=== PATIENT | female | born 1985 | race Caucasian/White ===

== ENCOUNTER → 2017-11-12 | Day surgery (SDC) | payer BC ==
[2017-11-11 15:10] VITALS: BMI 63.0
[~2017-11-12] VITALS: Ht 165.1 cm; Wt 172.7 kg
[~2017-11-12] MED LIST: ATROPINE SULFATE 0.1 MG/ML 5ML SYR IV PRN; BUPR150T7 PO; EpHEDrine SULFATE INJ 50 MG/ML AMP IV PRN; FEXO1TAB46 PO; FLUO10TA3 PO; KETAMINE HCL INJ 50 MG/ML 10 ML VIAL ONE; LEVO100T PO; LIDOCAINE HCL 2% 2 ML VIAL (20MG/ML) ONE; MIDAZOLAM HCL 1 MG/ML 2ML VIAL ONE; POTA1TAB PO; PRLSR20 PO; PROPOFOL IV EMULSION 10 MG/ML 20 ML VIAL ONE; SODIUM CHLORIDE 0.9% 500ML 500 ML IV ONE; TURM1CAP4 PO
[2017-11-12 12:46] VITALS: Ht 165.1 cm; Wt 172.7 kg
[2017-11-12 13:09] VITALS: TEMP 36.7
--- NOTE | 2017-11-12 14:12 | Endo History and Physical ---
History & Physical Date of Service: Nov 12, 2017. Chief Complaint: RECTAL BLEED FAMILY HISTORY COLON FATHER N/V/ABD PAIN Referring Physician: DR. LAIRD History of Present Illness Rectal bleeding and vomiting Past Surgical History Hx Cardiac Surgery: No Hx Internal Defibrillator: No Hx Pacemaker: No Hx Abdominal Surgery: No Hx of Implantable Prosthesis: No Hx Post-Op Nausea and Vomiting: No Hx Cancer Surgery: No Hx Thoracic Surgery: No Hx Orthopedic: No Hx Urinary Tract Surgery: No Family History None Social History Smoking Status: Never Smoker Hx Alcohol Use: No Allergies Coded Allergies: No Known Allergies (Verified , 11/11/17) Current Medications Reported Home Medications Medications Dose Route/Sig Max Daily Dose Days Date Category Potassium Gluconate 595 Mg Tab 1 Dose PO QAM 11/11/17 Reported Turmeric (Turmeric (Curcuma Longa)) 500 Mg Cap 500 Mg PO QAM 11/11/17 Reported Ann (Fexofenadine Hcl) 180 Mg Tab 180 Mg PO QAM 11/11/17 Reported Prilosec (Omeprazole) 20 Mg Capcr 20 Mg PO QAM 11/11/17 Reported Synthroid (Levothyroxine Sodium) 100 Mcg Tab 100 Mcg PO QAM 11/11/17 Reported Fluoxetine Hcl 10 Mg Tab 3 Tab PO QAM 30 11/11/17 Reported Wellbutrin Sr (Bupropion Hcl) 150 Mg Tab 150 Mg PO BID 07/25/15 Reported Vital Signs Weight (Kilograms): 172.73 Height (Feet): 5 Height (Inches): 5 Date Time Temp Pulse Resp B/P (MAP) Pulse Ox O2 Delivery O2 Flow Rate FiO2 11/12/17 13:09 36.7 71 24 124/95 (105) 97 Room Air Physical Exam General Appearance: no apparent distress Respiratory/Chest: Auscultation: breath sounds normal Cardiovascular: Heart Auscultation: RRR Abdomen: Inspection & Palpation: non-distended Assessment and Plan stable for EGD and colonoscopy
--- NOTE | 2017-11-12 15:18 | GI REPORT ---
Patient Name: Stefani Poole Procedure Date: 11/12/2017 2:08 PM Date of : 1985 Admit Type: Outpatient Age: 32 Gender: Female Attending MD: Wenceslao Lynn MD Procedure: Upper GI endoscopy Providers: Wenceslao Lynn MD Referring MD: Nan Weeks NP Indications: Nausea with vomiting Medicines: Monitored Anesthesia Care Complications: No immediate complications. Estimated Blood Loss: Estimated blood loss: none. Procedure: Pre-Anesthesia Assessment: - Prior to the procedure, a History and Physical was performed, and patient medications and allergies were reviewed. The patient is competent. The risks and benefits of the procedure and the sedation options and risks were discussed with the patient. All questions were answered and informed consent was obtained. Patient identification and proposed procedure were verified by the physician and the nurse in the procedure room. Mental Status Examination: alert and oriented. Airway Examination: normal oropharyngeal airway and neck mobility. Respiratory Examination: clear to auscultation. CV Examination: normal. ASA Grade Assessment: III - A patient with severe systemic disease. After reviewing the risks and benefits, the patient was deemed in satisfactory condition to undergo the procedure. The anesthesia plan was to use monitored anesthesia care (MAC). Immediately prior to administration of medications, the patient was re-assessed for adequacy to receive sedatives. The heart rate, respiratory rate, oxygen saturations, blood pressure, adequacy of pulmonary ventilation, and response to care were monitored throughout the procedure. The physical status of the patient was re-assessed after the procedure. After obtaining informed consent, the endoscope was passed under direct vision. Throughout the procedure, the patient's blood pressure, pulse, and oxygen saturations were monitored continuously. The scope was introduced through the mouth, and advanced to the second part of duodenum. The upper GI endoscopy was accomplished without difficulty. The patient tolerated the procedure well. 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 The Z-line was irregular and was found 40 cm from the incisors. Biopsies were taken with a cold forceps for histology. Verification of patient identification for the specimen was done by the physician and nurse using the patient's name and date. The entire examined stomach was normal. Biopsies were taken with a cold forceps for Helicobacter pylori testing. The duodenal bulb and second portion of the duodenum were normal. Biopsies were taken with a cold forceps for histology. Impression: - Ectopic gastric mucosa in the upper third of the esophagus. - Z-line irregular, 40 cm from the incisors. Biopsied. - Normal stomach. Biopsied. - Normal duodenal bulb and second portion of the duodenum. Biopsied. Recommendation: - Await pathology results. - Perform a colonoscopy today. Wenceslao Lynn MD 11/12/2017 3:18:27 PM This report has been signed electronically. Note Initiated On: 11/12/2017 2:08 PM Number of Addenda: 0 I attest to the content of the Intraoperative Record and orders documented therein, exceptions below {[id number]}
--- NOTE | 2017-11-12 15:20 | GI REPORT ---
Patient Name: Stefani Poole Procedure Date: 11/12/2017 2:08 PM Date of : 1985 Admit Type: Outpatient Age: 32 Gender: Female Attending MD: Wenceslao Lynn MD Procedure: Colonoscopy Providers: Wenceslao Lynn MD Referring MD: Nan Weeks NP Indications: Rectal bleeding Medicines: Monitored Anesthesia Care Complications: No immediate complications. Estimated Blood Loss: Estimated blood loss: none. Procedure: Pre-Anesthesia Assessment: - Prior to the procedure, a History and Physical was performed, and patient medications and allergies were reviewed. The patient is competent. The risks and benefits of the procedure and the sedation options and risks were discussed with the patient. All questions were answered and informed consent was obtained. Patient identification and proposed procedure were verified by the physician and the nurse in the procedure room. Mental Status Examination: alert and oriented. Airway Examination: normal oropharyngeal airway and neck mobility. Respiratory Examination: clear to auscultation. CV Examination: normal. ASA Grade Assessment: III - A patient with severe systemic disease. After reviewing the risks and benefits, the patient was deemed in satisfactory condition to undergo the procedure. The anesthesia plan was to use monitored anesthesia care (MAC). Immediately prior to administration of medications, the patient was re-assessed for adequacy to receive sedatives. The heart rate, respiratory rate, oxygen saturations, blood pressure, adequacy of pulmonary ventilation, and response to care were monitored throughout the procedure. The physical status of the patient was re-assessed after the procedure. After I obtained informed consent, the scope was passed under direct vision. Throughout the procedure, the patient's blood pressure, pulse, and oxygen saturations were monitored continuously. The scope was introduced through the anus and advanced to the cecum, identified by appendiceal orifice and ileocecal valve. The colonoscopy was performed without difficulty. The patient tolerated the procedure well. The quality of the bowel preparation was good. The terminal ileum, ileocecal valve, appendiceal orifice, and rectum were photographed. Findings: The perianal and digital rectal examinations were normal. Multiple small and large-mouthed diverticula were found in the sigmoid colon. Non-bleeding internal hemorrhoids were found during retroflexion. The hemorrhoids were small. Impression: - Diverticulosis in the sigmoid colon. - Non-bleeding internal hemorrhoids. - No specimens collected. Recommendation: - Discharge patient to home. - Return to referring physician. Wenceslao Lynn MD 11/12/2017 3:20:16 PM This report has been signed electronically. Note Initiated On: 11/12/2017 2:08 PM Number of Addenda: 0 I attest to the content of the Intraoperative Record and orders documented therein, exceptions below {[id number]}
--- NOTE | 2017-11-12 15:23 | Discharge Instructions ---
Endoscopy Patient Instructions Date / Procedure(s) Performed Nov 12, 2017. Colonoscopy, EGD Allergy Information Coded Allergies: No Known Allergies (Verified , 11/11/17) Discharge Date / Findings Nov 12, 2017. Normal EGD and colonoscopy Hemorrhoids Provider Instructions Activity Restrictions - No exercising or heavy lifting for 24 hours. - Do not drink alcohol the day of the procedure. - Do not drive a car or operate machinery until the day after the procedure. - Do not make any important decisions or sign important papers in 24 hours after the procedure. Following Day: - Return to full activity which may include returning to work/school. Diet Start your diet with liquids and light foods (jello, soup, juice, toast). Then eat your usual diet if not nauseated. Treatment For Common After Affects For mild abdominal pain, bloating, or excessive gas: - Rest - Eat lightly - Lie on right side Follow-Up Information Follow-up with DR. LAIRD as scheduled Anesthesia Information What You Should Know You have had a procedure that required some medicine to reduce anxiety and discomfort. This treatment is called moderate sedation. After receiving the treatment, you may be sleepy, but you will be able to breathe on your own. The effects of the treatment may last for several hours. Follow these instructions along with Activity/Diet recommendations noted above: * Do NOT do anything where dizziness or clumsiness would be dangerous. * Rest quietly at home today, then you can be up and about tomorrow. * Have a responsible person stay with you the rest of today. * You may have had an I.V. today. If so, you may take the dressing off later today. Recommendations Call your doctor if: * Trouble breathing * Continuous vomiting for more than 24 hours * Temperature above 101 degrees * Severe abdominal pain or bloating * Pain not relieved by pain medicine ordered * There is increased drainage or redness from any incision * A large amount of rectal bleeding greater than 2-3 tablespoons. (If you had a polyp/s removed or have hemorrhoids, a small amount of blood - from the rectum is to be expected.) * You have any unanswered questions or concerns. IN THE EVENT OF A SERIOUS EMERGENCY, GO TO THE NEAREST EMERGENCY ROOM Your discharge instructions were prepared by provider Wenceslao yLnn. Patient Instructions Signature Page Stefani Poole Patient (or Guardian) Signature/Date: I have read and understand the instructions given to me by my caregivers. Caregiver/RN/Doctor Signature/Date: The above-named patient and/or guardian has received patient instructions on this date. + Original Patient Signature Page (only) stays with chart. Please make copy for patient.
[2017-11-12 15:53] VITALS: BP 130/90; PULSE 89; O2SAT 100
--- NOTE | 2017-11-12 16:14 | Anesthesiology Progress Note ---
Anesthesia Post Op Note Date & Time Nov 12, 2017 at 16:14 Vital Signs Pain Intensity: 0 Vital Signs Past 12 Hours Date Time Temp Pulse Resp B/P (MAP) Pulse Ox O2 Delivery O2 Flow Rate FiO2 11/12/17 15:53 89 18 130/90 (103) 100 Room Air 11/12/17 15:38 86 18 131/96 (108) 100 Room Air 11/12/17 15:23 86 18 117/80 (92) 100 Room Air 11/12/17 13:09 36.7 71 24 124/95 (105) 97 Room Air Notes Mental Status: alert / awake / arousable, participated in evaluation Pt Amnestic to Procedure: Yes Nausea / Vomiting: adequately controlled Pain: adequately controlled Airway Patency, RR, SpO2: stable & adequate BP & HR: stable & adequate Hydration State: stable & adequate Anesthetic Complications: no major complications apparent
== END | disposition home or self-care (01) ==
LOC: C.GI 12:31
PROVIDERS: ATTEND Student in an Organized Health Care Education/Training Program
DX: K62.5 Hemorrhage of anus and rectum (principal); K57.30 Diverticulosis of large intestine without perforation or abscess without bleeding; K64.8 Other hemorrhoids; G47.33 Obstructive sleep apnea (adult) (pediatric); F32.9 Major depressive disorder, single episode, unspecified; F41.9 Anxiety disorder, unspecified; E03.9 Hypothyroidism, unspecified; E66.01 Morbid (severe) obesity due to excess calories; Z68.44 Body mass index [BMI] 60.0-69.9, adult; Z87.891 Personal history of nicotine dependence

== ENCOUNTER 2020-09-03 14:11 | Observation (INO) ==
[2020-09-03] MEDS ORDERED: PANTOprazole 80 MG in DEXTROSE 5% 100 ML IV ONE (15:50)
[2020-09-03] MEDS ORDERED: SODIUM CHLORIDE 0.9% 1000ML 1,000 ML IV STA (15:50)
[2020-09-03] MEDS ORDERED: PANTOPRAZOLE BOLUS/DRIP 1 EA IV STA (15:50)
[2020-09-03 16:22] LABS: Basophils # (auto) 0.04 K/uL (0-0.2); Basophils % (auto) 0.5 %; Eosinophils # (auto) 0.21 K/uL (0-0.5); Eosinophils % (auto) 2.8 %; Hematocrit (blood only) 41.8 % (37-47); Hemoglobin 13.6 g/dL (12.0-16.0); Immature Granulocytes # (auto) 0.01 K/uL (0.00-0.02); Immature Granulocytes % (auto) 0.1 %; Lymphocytes # (auto) 2.23 K/uL (1.2-3.4); Lymphocytes % (auto) 30.2 %; Mean Corpuscular Hemoglobin 31.6 pg (25-34); Mean Corpuscular Hgb Conc 32.5 g/dL (32-36); Mean Corpuscular Volume 97.2 fL (80-100); Mean Platelet Volume 10.1 fL (7.4-10.4); Monocytes # (auto) 0.66 K/uL (0.11-0.59); Monocytes % (auto) 8.9 %; Neutrophils # (auto) 4.24 K/uL (1.4-6.5); Neutrophils % (auto) 57.5 %; Platelet Count 330 K/uL (130-400); RDW Coefficient of Variation 14.7 % (11.5-14.5); RDW Standard Deviation 52.5 fL (36.4-46.3); White Blood Count 7.39 K/uL (4.8-10.8)
[2020-09-03 16:40] LABS: Partial Thromboplastin Ratio 0.9; Partial Thromboplastin Time 24.9 Seconds (21.0-31.0); Prothrombin Time 10.3 Seconds (9.0-12.0)
[2020-09-03 16:49] LABS: Albumin Level 3.7 gm/dl (3.4-5.0); BUN Creatinine Ratio 18.1 (10-20); Calcium 9.1 mg/dl (8.5-10.1); Creatinine Clr Calc Pharmacy 157.2 ml/min; Est GFR (African American) 108.2 ml/min; Est GFR (Non-African American) 93.4 ml/min; Potassium 3.9 mmol/L (3.5-5.1)
[2020-09-03 16:50] LABS: Albumin Globulin Ratio 0.9 (0.9-2); Bilirubin,Total 0.4 mg/dl (0.2-1); Globulin 3.9 gm/dl (2.5-4.0); Total Protein 7.6 gm/dl (6.4-8.2)
[2020-09-03] MEDS: PANTOprazole 40 MG in DEXTROSE 5% 100 ML IV SCH ×2 (16:53→20:54)
--- NOTE | 2020-09-03 18:19 | CT Scan Report ---
ABDOMEN AND PELVIS CT WITH IV CONTRAST CT DOSE: 4370.71 mGy.cm HISTORY: GI bleed. Gastric sleeve TECHNIQUE: Multiaxial CT images of the abdomen and pelvis were performed following the use of intrave nous contrast. A dose lowering technique was utilized adhering to the principles of ALARA. COMPARISON STUDY: None. FINDINGS: There is artifact secondary to the patient's large body habitus abutting the gantry. The mimi ng bases are clear. No pneumoperitoneum. No pneumatosis. No fractures within the visualized osseous s tructures. There is a 3.9 x 1.6 cm hypodense focus along the inferior aspect of the right hepatic lob e best seen on image 231. This could represent a splenic lesion or subcapsular fluid/old hematoma. Th e gallbladder, spleen, adrenal glands, and pancreas are unremarkable. The kidneys enhance normally. N o hydronephrosis. No retroperitoneal lymphadenopathy. Normal caliber abdominal aorta. Small hiatus he rnia. Postoperative changes consistent with a prior gastric sleeve procedure. There is an elongated h ypodense structure abutting the anterior/inferior aspect of the gastric antrum near the suture line. This is best seen on image 103 and measures 4.6 x 1.7. There is minimal inflammatory changes at this location. No extraluminal gas to suggest an anastomotic leak. No dilated loops of bowel to suggest an obstruction. The bladder, uterus, bilateral adnexa are within normal limits. Colonic diverticulosis. No evidence for acute diverticulitis. No bowel wall thickening. Focal areas of soft tissue density w ithin the subcutaneous fat of the anterior abdominal wall likely represent laparoscopic port sites. IMPRESSION: 1. Status post gastric sleeve procedure. 2. There is an elongated hypodense structure abutting the anterior/inferior aspect of the gastric ant rum near the suture line which measures 4.6 x 1.7. There is minimal inflammatory changes at this loca tion. This is nonspecific but favors postoperative change. No extraluminal gas to suggest an anastomo tic leak. Follow-up abdomen and pelvis CT in one month should be considered to ensure resolution/stab ility of this finding. 3. There is a 3.9 x 1.6 cm hypodense focus along the inferior aspect of the right hepatic lobe best. This could represent a hepatic lesion or subcapsular fluid/old hematoma. This also bears watching on follow-up examinations. ACT 112: Negative or not required by law. Electronically signed by: Lalo Malloy M.D. 09/03/2020 6:18 PM
[2020-09-03 20:03] LABS: Magnesium 2.4 mg/dl (1.8-2.4)
--- NOTE | 2020-09-03 21:26 | History & Physical Report ---
Date of Service September 03, 2020 Assessment & Plan (1) GI bleed: Possible combined UGI B/L GIB Recent sleeve gastrectomy hx GERD Rule out C. difficile Patient currently hemodynamically stable. Left facial asymmetry Unknown duration as per patient/partner Possible CVA given risk factors hypertension, slight elevated Abnormal LFTs secondary to NAFLD as per records hypothyroidism, recent TSH from March 2020 elevated prediabetes, patient meets criteria for DM2 diagnosis given recent hemoglobin A1c of 6.07 July 2020 past tobacco abuse OBS Medical telemetry IV PPI Serial H&H, transfuse PRBC if hemoglobin less than 7 and or for symptomatic anemia Stool C. difficile GI consult Re: GI bleed Neurochecks MRI/MRA brain in a.m. RE left facial asymmetry Additional stroke work-up pending MRI results. Recheck TSH in a.m. ISS BG goal 1 10-1 40 DVT prophylaxis. SCDs Re: GI bleed Full code Patient's partner requesting updates from providers. Ms. Darlin Ch, contact #[phone]. Text document was generated using [employer] voice recognition software. It may contain grammatical or spelling errors. Kindly contact undersigned for clarification of any documentation item in question. History of Present Illness Chief Complaint: Abdominal pain, GI bleed Primary Care Provider: Kameron Desai MD History obtained from patient, family, and records. Medical history significant for hypertension, NAFLD as per records, GERD, history diverticulosis/internal hemorrhoids, hypothyroidism, prediabetes, recent bariatric surgery, past tobacco abuse. Patient confined at [facility] June 2020 for elective sleeve gastrectomy for morbid obesity. Liver wedge biopsy also done during procedure. Unremarkable postop course. 1 week history of achy abdominal pain associated with bloody stools mixed with black, 4 episodes a day as per patient. No fever, no chills. No chest pain, no S OB. Some lightheadedness as per patient. Some nausea. No emesis. Denies OTC NSAID intake. Patient taking vitamins with iron as per partner. No immediate consultations. Patient eventually called PCP's office yesterday following the prodding of her partner. ER evaluation recommended by PCP's office. At the ER, IV PPI started for GI bleed. Medical History as above 2019 normal EGD 2018 diverticulosis, nonbleeding internal hemorrhoids Surgical History : Dental surgery, gastric bypass, partial gastrectomy/pylorus- preserving, tonsillectomy/adenoidectomy, dental surgery Family History : Stroke, breast cancer, colon cancer, DM, heart disease Personal/Social history : Past tobacco abuse, occasional EtOH intake, EMT Allergies Allergy/AdvReac Type Severity Reaction Status Date / Time cephalexin [From Keflex] Allergy Mild vomiting, Verified 09/03/20 16:38 diarrhea Home Medications Medication Instructions Recorded Confirmed Type aripiprazole 10 mg tablet 10 mg PO QAM 05/27/19 09/03/20 History bupropion HCl 150 mg tablet,12 hr 150 mg PO BID 05/27/19 09/03/20 History sustained-release fluoxetine 20 mg capsule 20 mg PO QAM 05/27/19 09/03/20 History fluoxetine 40 mg capsule 40 mg PO QAM 05/27/19 09/03/20 History levothyroxine 137 mcg capsule 137 mcg PO QAM 05/27/19 09/03/20 History omeprazole 40 mg capsule,delayed 40 mg PO QAM 05/27/19 09/03/20 History release topiramate 100 mg tablet 100 mg PO HS 05/27/19 09/03/20 History Metamucil 1 tsp PO QAM PRN 10/20/19 09/03/20 History clonidine HCl [Catapres] 0.2 mg PO HS 03/22/20 09/03/20 History norethindrone acetate 10 mg PO DAILY 03/22/20 09/03/20 History calcium citrate [Citracal] 200 mg PO DAILY 09/03/20 09/03/20 History docusate sodium [Colace] 400 mg PO DAILY 09/03/20 09/03/20 History pediatric multivitamin 1 tab PO DAILY 09/03/20 09/03/20 History [Flintstones Multivitamin] Past Med/Surg History Medical History (Updated 09/04/20 @ 03:00 by Asher De Santiago MD) Anemia Anxiety Bipolar disorder Degenerative disc disease Depression Diverticular disease Hypothyroidism Morbid obesity with BMI of 70 and over, adult Obesity Osteoarthritis Post traumatic stress disorder Sleep apnea cpap, does not use as ordered Spinal stenosis Surgical History History of colonoscopy History of esophagogastroduodenoscopy (EGD) History of myringotomy History of tonsillectomy and adenoids History of wisdom tooth extraction Family History Mother Diabetes Dyslipidemia Heart disease Thyroid disease Father Dyslipidemia Heart disease Colorectal cancer Hypertension Family hx colonic polyps Aunt Osteoarthritis Cancer uterine Grandmother (Paternal) Ovarian cancer Breast cancer Grandmother (Maternal) Cancer cervical Other No family history of adverse response to anesthesia Denies family history of Prostate cancer Social History Smoking Status: Former smoker Cigarettes Per Day: 2 a day; Smoking End Date: 2019; Second Hand Exposure: No; Do You Dip or Chew Tobacco: No; Tobacco Cessation Education Requested by Patient: No Hx Alcohol Use: No Hx Substance Use: No Preferred Language: Kazakh Communication Ability: Effective Yarn Weight [employer] Strength Tester Required: No Beliefs That Will Affect Care: None Current Living Situation: Spouse and Family Current Living Situation Comment: Lives with and stepson current occupational status: employed Other Information That Helps Us Care for You: No Feels Safe at Home: Yes Safety Concerns: Feels Safe At This Time Assistive Devices: None Review of Systems Review of Systems: As per HPI, all 10 systems reviewed, all other ROS negative Physical Exam Physical Exam: GENERAL: Comfortable, slightly anxious, morbidly obese, looks older than stated age, no respiratory distress SKIN: Normal color, warm HEENT: [place] palpebral conjunctivae, no ptosis, dry buccal mucosa, flattened left nasolabial fold NECK : Supple, short neck, no tenderness CHEST : Decreased breath sounds, no tenderness HEART : RRR, no obvious murmurs ABDOMEN: Marked distention, epigastric/hypogastric tenderness EXTREMITIES : Bilateral LE swelling, no LE tenderness, no other conspicuous deformities noted NEUROLOGIC : Coherent, flattened left nasolabial fold, no other gross focality Results & Data Results & Data ([facility]) Vital Signs (Past 12 Hours) Vital Signs Temp Pulse Pulse Resp BP Pulse Ox 09/03/20 19:00 74 18 119/71 99 09/03/20 18:04 76 20 170/92 H 99 09/03/20 16:12 99 09/03/20 15:40 78 20 175/103 H 98 09/03/20 14:13 36.4 C L 97 H 16 97 Laboratory Results Laboratory Results WBC 7.39 K/uL (4.8-10.8) 09/03/20 15:57 RBC 4.30 M/uL (4.2-5.4) 09/03/20 15:57 Hgb 13.6 g/dL (12.0-16.0) 09/03/20 15:57 Hct 41.8 % (37-47) 09/03/20 15:57 MCV 97.2 fL (80-100) 09/03/20 15:57 MCH 31.6 pg (25-34) 09/03/20 15:57 MCHC 32.5 g/dL (32-36) 09/03/20 15:57 RDW Std Deviation 52.5 fL (36.4-46.3) H 09/03/20 15:57 RDW Coeff of Taya 14.7 % (11.5-14.5) H 09/03/20 15:57 Plt Count 330 K/uL (130-400) 09/03/20 15:57 MPV 10.1 fL (7.4-10.4) 09/03/20 15:57 Immature Gran % (Auto) 0.1 % 09/03/20 15:57 Neut % (Auto) 57.5 % 09/03/20 15:57 Lymph % (Auto) 30.2 % 09/03/20 15:57 [place] % (Auto) 8.9 % 09/03/20 15:57 Eos % (Auto) 2.8 % 09/03/20 15:57 Baso % (Auto) 0.5 % 09/03/20 15:57 Neut # (Auto) 4.24 K/uL (1.4-6.5) 09/03/20 15:57 Lymph # (Auto) 2.23 K/uL (1.2-3.4) 09/03/20 15:57 [place] # (Auto) 0.66 K/uL (0.11-0.59) H 09/03/20 15:57 Eos # (Auto) 0.21 K/uL (0-0.5) 09/03/20 15:57 Baso # (Auto) 0.04 K/uL (0-0.2) 09/03/20 15:57 Immature Gran # (Auto) 0.01 K/uL (0.00-0.02) 09/03/20 15:57 PT 10.3 Seconds (9.0-12.0) 09/03/20 15:57 INR 1.0 (0.9-1.1) 09/03/20 15:57 APTT 24.9 Seconds (21.0-31.0) 09/03/20 15:57 PTT Ratio 0.9 09/03/20 15:57 Sodium 139 mmol/L (136-145) 09/03/20 15:57 Potassium 3.9 mmol/L (3.5-5.1) 09/03/20 15:57 Chloride 111 mmol/L (98-107) H 09/03/20 15:57 Carbon Dioxide 21 mmol/L (21-32) 09/03/20 15:57 Anion Gap 7.0 (3-11) 09/03/20 15:57 BUN 15 mg/dl (7-18) 09/03/20 15:57 Creatinine 0.82 mg/dl (0.6-1.2) 09/03/20 15:57 Est Cr Clr Drug Dosing 157.2 ml/min 09/03/20 15:57 Est GFR ( Amer) 108.2 ml/min 09/03/20 15:57 Est GFR (Non-Af Amer) 93.4 ml/min 09/03/20 15:57 BUN/Creatinine Ratio 18.1 (10-20) 09/03/20 15:57 Glucose 97 mg/dl (70-99) 09/03/20 15:57 Calcium 9.1 mg/dl (8.5-10.1) 09/03/20 15:57 Magnesium 2.4 mg/dl (1.8-2.4) 09/03/20 15:57 Total Bilirubin 0.4 mg/dl (0.2-1) 09/03/20 15:57 AST 39 U/L (15-37) H 09/03/20 15:57 ALT 122 U/L (12-78) H 09/03/20 15:57 Alkaline Phosphatase 39 U/L (45-117) L 09/03/20 15:57 Total Protein 7.6 gm/dl (6.4-8.2) 09/03/20 15:57 Albumin 3.7 gm/dl (3.4-5.0) 09/03/20 15:57 Globulin 3.9 gm/dl (2.5-4.0) 09/03/20 15:57 Albumin/Globulin Ratio 0.9 (0.9-2) 09/03/20 15:57 Specimen Hemolysis 09/03/20 15:57 POC Stool Occult Blood Positive (Negative) A 09/03/20 16:10 COVID-19 Eval Order Covid19 at [facility] 09/03/20 19:15 SARS-CoV-2 (PCR) NEGATIVE (Negative) 09/03/20 19:15 Blood Type A Positive 09/03/20 17:04 Antibody Screen NEGATIVE 09/03/20 17:04 Impressions Abdomen/Pelvis CT 09/03/20 15:[address] WITH IV CONTRAST CT DOSE: 4370.71 mGy.cm HISTORY: GI bleed. Gastric sleeve TECHNIQUE: Multiaxial CT images of the abdomen and pelvis were performed following the use of intravenous contrast. A dose lowering technique was utilized adhering to the principles of ALARA. COMPARISON STUDY: None. FINDINGS: There is artifact secondary to the patient's large body habitus abutting the gantry. The lung bases are clear. No pneumoperitoneum. No pneumatosis. No fractures within the visualized osseous structures. There is a 3.9 x 1.6 cm hypodense focus along the inferior aspect of the right hepatic lobe best seen on image 231. This could represent a splenic lesion or subcapsular fluid/old hematoma. The gallbladder, spleen, adrenal glands, and pancreas are unremarkable. The kidneys enhance normally. No hydronephrosis. No retroperitoneal lymphadenopathy. Normal caliber abdominal aorta. Small hiatus he rnia. Postoperative changes consistent with a prior gastric sleeve procedure. There is an elongated hypodense structure abutting the anterior/inferior aspect of the gastric antrum near the suture line. This is best seen on image 103 and measures 4.6 x 1.7. There is minimal inflammatory changes at this location. No extraluminal gas to suggest an anastomotic leak. No dilated loops of bowel to suggest an obstruction. The bladder, uterus, bilateral adnexa are within normal limits. Colonic diverticulosis. No evidence for acute diverticulitis. No bowel wall thickening. Focal areas of soft tissue density within the subcutaneous fat of the anterior abdominal wall likely represent laparoscopic port sites. IMPRESSION: 1. Status post gastric sleeve procedure. 2. There is an elongated hypodense structure abutting the anterior/inferior aspect of the gastric antrum near the suture line which measures 4.6 x 1.7. There is minimal inflammatory changes at this location. This is nonspecific but favors postoperative change. No extraluminal gas to suggest an anastomotic leak. Follow-up abdomen and pelvis CT in one month should be considered to ensure resolution/stability of this finding. 3. There is a 3.9 x 1.6 cm hypodense focus along the inferior aspect of the right hepatic lobe best. This could represent a hepatic lesion or subcapsular fluid/old hematoma. This also bears watching on follow-up examinations. ACT 112: Negative or not required by law. Electronically signed by: Lalo Malloy M.D. 09/03/2020 6:[address] head: No acute intracranial abnormality. EKG as per my interpretation: Rate 75, NSR, short OK, normal axis, T wave abnormality septal leads Code Status & VTE Plan VTE Prophylaxis Plan VTE Prophylaxis will be ordered: Yes
--- NOTE | 2020-09-03 21:27 | CT Scan Report ---
HEAD CT NONCONTRAST CT DOSE: 773.57 mGy.cm HISTORY: L facial asymmetry TECHNIQUE: Multiaxial CT images of the head were performed without the use of intravenous contrast. A utomated exposure control was utilized for this study. A dose lowering technique was utilized adheri ng to the principles of ALARA. Comparison: None. Findings: The paranasal sinuses and mastoid air cells are clear. The calvarium and skull base are int act. The ventricles and sulci are within normal limits. There is no mass, hematoma, midline shift, or acute infarct. Small amount of residual contrast within the brain from the recent abdomen and pelvis CT. Impression: No acute intracranial abnormality. ACT 112: Negative or not required by law. Electronically signed by: Lalo Malloy M.D. 09/03/2020 9:25 PM
[2020-09-03] MEDS ORDERED: TOPIRAMATE 100 MG TAB PO SCH (22:28)
[2020-09-03] MEDS ORDERED: GLUCAGON FOR INJ 1 MG VIAL SQ PRN (22:28)
[2020-09-03] MEDS ORDERED: GLUCOSE 10 TABS/TUBE PO PRN (22:28)
[2020-09-03] MEDS ORDERED: DEXTROSE 50% 50 ML SYRINGE IV PRN (22:28)
[2020-09-03] MEDS ORDERED: PROMETHAZINE HCL 12.5 MG in SODIUM CHLORIDE 0.9% 50 ML IV PRN (22:28)
[2020-09-03] MEDS ORDERED: ACETAMINOPHEN 325 MG TAB PO PRN (22:28)
[2020-09-03] MEDS ORDERED: MoRPHine SULFATE 4 MG/ML 1 ML CARP\\VIAL IV PRN (22:28)
[2020-09-03] MEDS ORDERED: LORazepam 0.5 MG/1 ML VIAL IV PRN (22:28)
[2020-09-03] MEDS ORDERED: traMADol HCL 50 MG TABLET PO PRN (22:28)
[2020-09-03] MEDS ORDERED: GLUCOSE 40% GEL 15 GM TUBE PO PRN (22:28)
[2020-09-03] MEDS ORDERED: CARBOHYDRATES FOR HYPOGLYCEMIA PO PRN (22:28)
[2020-09-03] MEDS ORDERED: PSYLLIUM 58.6% POWDER PACKET PO PRN (22:45)
[2020-09-03 22:50] LABS: Hemoglobin 12.4 g/dL (12.0-16.0)
[2020-09-03] MEDS ORDERED: NSS + 20MEQ KCL 20 MEQ/1,000 ML BAG IV SCH (23:00)
[2020-09-03] MEDS ORDERED: cloNIDine HCL 0.1 MG TAB PO SCH (23:00)
[2020-09-03] MEDS: buPROPion SR 150 MG TABCR PO SCH (23:37)
[2020-09-03] MEDS: INSULIN ASPART 100 UNITS/ML 3 ML PEN SC SCH (23:50)
[2020-09-04] MEDS: PANTOprazole 40 MG in DEXTROSE 5% 100 ML IV SCH ×3 (02:07→13:32)
[2020-09-04 06:06] LABS: Basophils # (auto) 0.03 K/uL (0-0.2); Basophils % (auto) 0.5 %; Eosinophils # (auto) 0.21 K/uL (0-0.5); Eosinophils % (auto) 3.3 %; Hematocrit (blood only) 37.1 % (37-47); Hemoglobin 12.1 g/dL (12.0-16.0); Immature Granulocytes # (auto) 0.01 K/uL (0.00-0.02); Immature Granulocytes % (auto) 0.2 %; Lymphocytes # (auto) 1.94 K/uL (1.2-3.4); Lymphocytes % (auto) 30.5 %; Mean Corpuscular Hemoglobin 31.1 pg (25-34); Mean Corpuscular Hgb Conc 32.6 g/dL (32-36); Mean Corpuscular Volume 95.4 fL (80-100); Mean Platelet Volume 10.1 fL (7.4-10.4); Monocytes # (auto) 0.58 K/uL (0.11-0.59); Monocytes % (auto) 9.1 %; Neutrophils % (auto) 56.4 %; Platelet Count 266 K/uL (130-400); RDW Coefficient of Variation 14.7 % (11.5-14.5); RDW Standard Deviation 51.7 fL (36.4-46.3); Red Blood Count 3.89 M/uL (4.2-5.4); White Blood Count 6.37 K/uL (4.8-10.8)
[2020-09-04] MEDS ORDERED: LEVOTHYROXINE SODIUM 137 MCG TABLET PO SCH (06:30)
[2020-09-04 06:40] LABS: Albumin Level 3.3 gm/dl (3.4-5.0); BUN Creatinine Ratio 15.8 (10-20); Calcium 8.4 mg/dl (8.5-10.1); Creatinine Clr Calc Pharmacy 197.6 ml/min; Est GFR (African American) 132.9 ml/min; Est GFR (Non-African American) 114.7 ml/min; Potassium 3.5 mmol/L (3.5-5.1)
[2020-09-04 06:51] LABS: Bilirubin,Total 0.6 mg/dl (0.2-1); Globulin 3.3 gm/dl (2.5-4.0); Thyroid Stimulating Hormone 1.24 uIu/ml (0.300-4.500); Total Protein 6.6 gm/dl (6.4-8.2)
[2020-09-04] MEDS: INSULIN ASPART 100 UNITS/ML 3 ML PEN SC SCH ×2 (07:08→12:29)
--- NOTE | 2020-09-04 08:37 | Electrocardiogram Report ---
Test Reason : Blood Pressure : / mmHG Vent. Rate : 075 BPM Atrial Rate : 075 BPM P-R Int : 108 ms QRS Dur : 078 ms QT Int : 410 ms P-R-T Axes : 014 036 040 degrees QTc Int : 457 ms Poor data quality, interpretation may be adversely affected Sinus rhythm with short DE Otherwise normal ECG When compared with ECG of 22-MAR-2020 18:50, No significant change was found Confirmed by Jon Crouch ([id number]) on 09/04/2020 8:37:18 AM Referred By: REFERRED SELF Confirmed By:Jon Crouch
[2020-09-04] MEDS: buPROPion SR 150 MG TABCR PO SCH (08:44)
[2020-09-04] MEDS ORDERED: ARIPiprazole 10 MG TAB PO SCH (09:00)
[2020-09-04] MEDS ORDERED: FLUoxetine HCL 20 MG CAP PO SCH ×2 (09:00)
[2020-09-04] MEDS ORDERED: MULTIVITAMIN CHEWABLE TAB PO SCH (09:00)
--- NOTE | 2020-09-04 10:25 | Emergency Department Note ---
History of Present Illness General Chief complaint: GI Assessment Stated complaint: LOWER GI BLOOD Time Seen by Provider: 09/03/20 14:40 Source: patient, family (Significant other) and RN notes reviewed Mode of arrival: ambulatory Limitations: no limitations History of Present Illness Provider complaint: Blood in stool, recent gastric sleeve Maximum Pain Intensity: 3 This patient is a 35-year-old female who presents to the emergency department with complaints of blood in her stool for the last several days. Patient had a gastric sleeve procedure done in mid June. The patient has noticed blood in her stools for the last week. Today she noticed an increase in the amount of blood and her became concerned. The patient denies any nausea, vomiting or abdominal pain. She believes she has been able to eat reasonably well and stay hydrated. She denies anticoagulation or NSAIDs recently. Patient states her surgery was performed at [facility]. Home Medications Medication Instructions Recorded Confirmed Type aripiprazole 10 mg tablet 10 mg PO QAM 05/27/19 09/03/20 History bupropion HCl 150 mg tablet,12 hr 150 mg PO BID 05/27/19 09/03/20 History sustained-release fluoxetine 20 mg capsule 20 mg PO QAM 05/27/19 09/03/20 History fluoxetine 40 mg capsule 40 mg PO QAM 05/27/19 09/03/20 History levothyroxine 137 mcg capsule 137 mcg PO QAM 05/27/19 09/03/20 History topiramate 100 mg tablet 100 mg PO HS 05/27/19 09/03/20 History Metamucil 1 tsp PO QAM PRN 10/20/19 09/03/20 History clonidine HCl [Catapres] 0.2 mg PO HS 03/22/20 09/03/20 History norethindrone acetate 10 mg PO DAILY 03/22/20 09/03/20 History Flintstones Multivitamin 1 tab PO DAILY 09/03/20 09/03/20 History calcium citrate 200 mg PO DAILY 09/03/20 09/03/20 History docusate sodium [Colace] 400 mg PO DAILY 09/03/20 09/03/20 History pantoprazole [Protonix] 40 mg PO BID #60 tab 09/04/20 Rx Allergies Allergy/AdvReac Type Severity Reaction Status Date / Time cephalexin [From Keflex] Allergy Mild vomiting, Verified 09/03/20 16:38 diarrhea Past Med/Surg History Medical History (Updated 09/06/20 @ 01:44 by Corinna Padilla MD) Anemia Anxiety Bipolar disorder Degenerative disc disease Depression Diverticular disease Hypothyroidism Morbid obesity with BMI of 70 and over, adult Obesity Osteoarthritis Post traumatic stress disorder Sleep apnea cpap, does not use as ordered Spinal stenosis Surgical History (Updated 09/06/20 @ 01:44 by Corinna Padilla MD) History of colonoscopy History of esophagogastroduodenoscopy (EGD) History of myringotomy History of tonsillectomy and adenoids History of wisdom tooth extraction Family History Mother Diabetes Dyslipidemia Heart disease Thyroid disease Father Dyslipidemia Heart disease Colorectal cancer Hypertension Family hx colonic polyps Aunt Osteoarthritis Cancer uterine Grandmother (Paternal) Ovarian cancer Breast cancer Grandmother (Maternal) Cancer cervical Other No family history of adverse response to anesthesia Denies family history of Prostate cancer Social History Smoking Status: Former smoker Cigarettes Per Day: 2 a day; Second Hand Exposure: No; Hx Alcohol Use: No Hx Substance Use: No Preferred Language: Moldovan Communication Ability: Effective Science Professor Required: No Beliefs That Will Affect Care: None Current Living Situation: Spouse and Family Current Living Situation Comment: Lives with and stepson current occupational status: employed Feels Safe at Home: Yes Assistive Devices: None Review of Systems See HPI for pertinent positives & negatives. and A total of 10 systems reviewed and were otherwise negative Physical Exam Vital Signs Vital Signs - 24 hr 09/03/20 14:13 09/03/20 15:40 09/03/20 16:12 Temperature 36.4 C L Temperature Source Temporal Artery Scan Pulse Rate - Lying Pulse Rate - Sitting Pulse Rate - Standing Pulse Rate 97 H Pulse Rate [Right Finger] 78 Pulse Rhythm Regular Pulse Rhythm [Right Finger] Regular Pulse Strength Normal Pulse Strength [Right Finger] Normal Respiratory Rate 16 20 Respiratory Effort / Characteristics Non-Labored Non-Labored Spontaneous Respiratory Depth Normal Normal Respiratory Pattern Regular Blood Pressure - Lying Blood Pressure - Sitting Blood Pressure- Standing Blood Pressure [Right Arm] 175/103 H Blood Pressure Mean [Right Arm] 127 Blood Pressure Position Sitting Blood Pressure Position [Right Arm] Sitting Pulse Oximetry 97 98 99 Oxygen Delivery Method Room Air Room Air Room Air Sepsis Recent Fever Within 48 Hours No Sepsis New/Unexplained Change in Mental Status N/A Sepsis Action Taken by Nursing No Action Required 09/03/20 18:04 09/03/20 19:00 09/03/20 20:26 Temperature Temperature Source Pulse Rate - Lying 68 Pulse Rate - Sitting 82 Pulse Rate - Standing 88 Pulse Rate Pulse Rate [Right Finger] 76 74 Pulse Rhythm Pulse Rhythm [Right Finger] Regular Pulse Strength Pulse Strength [Right Finger] Normal Respiratory Rate 20 18 Respiratory Effort / Characteristics Non-Labored Spontaneous Non-Labored Respiratory Depth Normal Normal Respiratory Pattern Regular Blood Pressure - Lying 140/91 Blood Pressure - Sitting 149/91 H Blood Pressure- Standing 158/106 H Blood Pressure [Right Arm] 170/92 H 119/71 Blood Pressure Mean [Right Arm] 118 87 Blood Pressure Position Blood Pressure Position [Right Arm] Sitting Pulse Oximetry 99 99 Oxygen Delivery Method Room Air Room Air Sepsis Recent Fever Within 48 Hours Sepsis New/Unexplained Change in Mental Status Sepsis Action Taken by Nursing Vital signs reviewed. General: Well-appearing, morbidly obese, 35-year-old female, in no significant distress. HEENT: No scleral icterus, PERRLA, neck supple. Atraumatic. Cardiovascular: Regular rate and rhythm, no extra sounds. Pulmonary: Clear to auscultation bilaterally, normal work of breathing. Abdomen: Soft, obese, nontender, nondistended, positive bowel sounds. Musculoskeletal: Atraumatic, no peripheral edema. Neurologic: Patient awake alert and oriented x 3 Rectal: Normal external rectal mucosa with small hemorrhoids appreciated. Dark red blood and heme positive. Skin: Warm, dry, no rash Course Administered Medications Discontinued Medications Aripiprazole (Aripiprazole 10 Mg Tab) 10 mg PO QAM [facility] Stop: 10/04/20 08:59 Last Admin: 09/04/20 08:44 Dose: 10 mg Documented by: [id number] Bupropion HCl (Bupropion Sr 150 Mg Tabcr) 150 mg PO BID [facility] Stop: 10/03/20 22:27 Last Admin: 09/04/20 08:44 Dose: 150 mg Documented by: [id number] Admin: 09/03/20 23:37 Dose: 150 mg Documented by: [id number] Clonidine HCl (Clonidine Hcl 0.1 Mg Tab) 0.1 mg PO HS [facility] Stop: 10/03/20 22:59 Last Admin: 09/03/20 23:37 Dose: 0.1 mg Documented by: [id number] Fluoxetine HCl (Fluoxetine Hcl 20 Mg Cap) 60 mg PO QAM DAT Stop: 10/04/20 08:59 Last Admin: 09/04/20 08:44 Dose: 60 mg Documented by: [id number] Sodium Chloride (Nss 1000ml) 1,000 mls @ 125 mls/hr IV .Q8H STA Stop: 09/03/20 23:49 Last Infusion: 09/03/20 23:46 Dose: 0 mls/hr Documented by: [id number] Admin: 09/03/20 16:09 Dose: 125 mls/hr Documented by: [id number] Pantoprazole Sodium (Protonix Bolus/Drip) 0 mls @ 1 mls/hr IV ONE STA Stop: 09/03/20 15:51 Last Admin: 09/03/20 17:15 Dose: 1 mls/hr Documented by: [id number] Pantoprazole Sodium 40 mg/ (Dextrose) 100 mls @ 20 mls/hr IV Q5H DAT Stop: 10/03/20 16:06 Last Admin: 09/04/20 13:32 Dose: 8 mg/hr, 20 mls/hr Documented by: [id number] Infusion: 09/04/20 13:32 Dose: 8 mg/hr, 20 mls/hr Documented by: [id number] Infusion: 09/04/20 13:30 Dose: 8 mg/hr, 20 mls/hr Documented by: [id number] Infusion: 09/04/20 13:30 Dose: 0 mg/hr, 0 mls/hr Documented by: [id number] Infusion: 09/04/20 11:02 Dose: 8 mg/hr, 20 mls/hr Documented by: [id number] Infusion: 09/04/20 09:45 Dose: 0 mg/hr, 0 mls/hr Documented by: [id number] Admin: 09/04/20 07:14 Dose: 8 mg/hr, 20 mls/hr Documented by: [id number] Infusion: 09/04/20 07:07 Dose: 8 mg/hr, 20 mls/hr Documented by: [id number] Admin: 09/04/20 02:07 Dose: 8 mg/hr, 20 mls/hr Documented by: [id number] Infusion: 09/04/20 01:54 Dose: 8 mg/hr, 20 mls/hr Documented by: [id number] Admin: 09/03/20 20:54 Dose: 8 mg/hr, 20 mls/hr Documented by: [id number] Infusion: 09/03/20 20:54 Dose: 8 mg/hr, 20 mls/hr Documented by: [id number] Admin: 09/03/20 16:53 Dose: 8 mg/hr, 20 mls/hr Documented by: [id number] Pantoprazole Sodium 80 mg/ (Dextrose) 120 mls @ 400 mls/hr IV NOW ONE Stop: 09/03/20 16:07 Last Infusion: 09/03/20 17:13 Dose: 0 mls/hr Documented by: [id number] Admin: 09/03/20 16:53 Dose: 400 mls/hr Documented by: [id number] Potassium Chloride/Sodium Chloride (Normal Saline W/20 Meq Kcl) 20 meq in 1,000 mls @ 50 mls/hr IV .Q20H DAT Stop: 10/03/20 22:59 Last Infusion: 09/04/20 11:02 Dose: 50 mls/hr Documented by: [id number] Infusion: 09/04/20 09:45 Dose: 0 mls/hr Documented by: [id number] Admin: 09/03/20 23:42 Dose: 50 mls/hr Documented by: [id number] Insulin Aspart (Insulin Aspart 100 Units/Ml 3 Ml Pen) 0 units SC Q6 DAT Stop: 10/03/20 22:59 Last Admin: 09/04/20 12:29 Dose: Not Given Documented by: [id number] Admin: 09/04/20 07:08 Dose: Not Given Documented by: [id number] Cosigned by: [id number] Admin: 09/03/20 23:50 Dose: Not Given Documented by: [id number] Cosigned by: [id number] Levothyroxine Sodium (Levothyroxine Sodium 137 Mcg Tablet) 137 mcg PO DAILYBB DAT Stop: 10/04/20 06:29 Last Admin: 09/04/20 07:16 Dose: 137 mcg Documented by: [id number] Multivitamins/Folic Acid/Vitamin C (Multivitamin Chewable Tab) 1 tab PO DAILY DAT Stop: 10/04/20 08:59 Last Admin: 09/04/20 08:44 Dose: 1 tab Documented by: [id number] Topiramate (Topiramate 100 Mg Tab) 100 mg PO HS DAT Stop: 10/03/20 22:27 Last Admin: 09/03/20 23:38 Dose: 100 mg Documented by: [id number] Medical Decision Making Differential Diagnosis Diverticulosis, anastomotic bleed, AVM, coagulopathy, colitis, inflammatory bowel disease, malignancy, Khushboo-Aquino tear, esophagitis, peptic ulcer disease, variceal bleed, gastritis, epistaxis, fissure, hemorrhoids, as well as other pathologies. Medical Records Attestation: I reviewed the patient's medical records. Home Medications Current Medication List: was personally reviewed by me Laboratory Data Attestation: I reviewed the patient's lab results. Result diagrams: 09/04/20 05:29 09/04/20 05:29 Lab Results 09/03/20 09/03/20 09/03/20 Range/Units 15:57 15:57 15:57 WBC 7.39 (4.8-10.8) K/uL RBC 4.30 (4.2-5.4) M/uL Hgb 13.6 (12.0-16.0) g/dL Hct 41.8 (37-47) % MCV 97.2 (80-100) fL MCH 31.6 (25-34) pg MCHC 32.5 (32-36) g/dL RDW Std Deviation 52.5 H (36.4-46.3) fL RDW Coeff of Taya 14.7 H (11.5-14.5) % Plt Count 330 (130-400) K/uL MPV 10.1 (7.4-10.4) fL Immature Gran % (Auto) 0.1 % Neut % (Auto) 57.5 % Lymph % (Auto) 30.2 % [place] % (Auto) 8.9 % Eos % (Auto) 2.8 % Baso % (Auto) 0.5 % Neut # (Auto) 4.24 (1.4-6.5) K/uL Lymph # (Auto) 2.23 (1.2-3.4) K/uL [place] # (Auto) 0.66 H (0.11-0.59) K/uL Eos # (Auto) 0.21 (0-0.5) K/uL Baso # (Auto) 0.04 (0-0.2) K/uL Immature Gran # (Auto) 0.01 (0.00-0.02) K/uL PT 10.3 (9.0-12.0) Seconds INR 1.0 (0.9-1.1) APTT 24.9 (21.0-31.0) Seconds PTT Ratio 0.9 Sodium (136-145) mmol/L Potassium (3.5-5.1) mmol/L Chloride (98-107) mmol/L Carbon Dioxide (21-32) mmol/L Anion Gap (3-11) BUN (7-18) mg/dl Creatinine (0.6-1.2) mg/dl Est Cr Clr Drug Dosing ml/min Est GFR ( Amer) ml/min Est GFR (Non-Af Amer) ml/min BUN/Creatinine Ratio (10-20) Glucose (70-99) mg/dl Calcium (8.5-10.1) mg/dl Magnesium (1.8-2.4) mg/dl Total Bilirubin (0.2-1) mg/dl AST (15-37) U/L ALT (12-78) U/L Alkaline Phosphatase (45-117) U/L Total Protein (6.4-8.2) gm/dl Albumin (3.4-5.0) gm/dl Globulin (2.5-4.0) gm/dl Albumin/Globulin Ratio (0.9-2) Specimen Hemolysis POC Stool Occult Blood (Negative) Stl C. diff Tox B Gene (Neg) COVID-19 Eval Order SARS-CoV-2 (PCR) (Negative) Blood Type Cancelled Antibody Screen Cancelled 09/03/20 09/03/20 09/03/20 Range/Units 15:57 16:06 16:10 WBC (4.8-10.8) K/uL RBC (4.2-5.4) M/uL Hgb (12.0-16.0) g/dL Hct (37-47) % MCV (80-100) fL MCH (25-34) pg MCHC (32-36) g/dL RDW Std Deviation (36.4-46.3) fL RDW Coeff of Taya (11.5-14.5) % Plt Count (130-400) K/uL MPV (7.4-10.4) fL Immature Gran % (Auto) % Neut % (Auto) % Lymph % (Auto) % [place] % (Auto) % Eos % (Auto) % Baso % (Auto) % Neut # (Auto) (1.4-6.5) K/uL Lymph # (Auto) (1.2-3.4) K/uL [place] # (Auto) (0.11-0.59) K/uL Eos # (Auto) (0-0.5) K/uL Baso # (Auto) (0-0.2) K/uL Immature Gran # (Auto) (0.00-0.02) K/uL PT (9.0-12.0) Seconds INR (0.9-1.1) APTT (21.0-31.0) Seconds PTT Ratio Sodium 139 (136-145) mmol/L Potassium 3.9 (3.5-5.1) mmol/L Chloride 111 H (98-107) mmol/L Carbon Dioxide 21 (21-32) mmol/L Anion Gap 7.0 (3-11) BUN 15 (7-18) mg/dl Creatinine 0.82 (0.6-1.2) mg/dl Est Cr Clr Drug Dosing 157.2 ml/min Est GFR ( Amer) 108.2 ml/min Est GFR (Non-Af Amer) 93.4 ml/min BUN/Creatinine Ratio 18.1 (10-20) Glucose 97 (70-99) mg/dl Calcium 9.1 (8.5-10.1) mg/dl Magnesium 2.4 (1.8-2.4) mg/dl Total Bilirubin 0.4 (0.2-1) mg/dl AST 39 H (15-37) U/L ALT 122 H (12-78) U/L Alkaline Phosphatase 39 L (45-117) U/L Total Protein 7.6 (6.4-8.2) gm/dl Albumin 3.7 (3.4-5.0) gm/dl Globulin 3.9 (2.5-4.0) gm/dl Albumin/Globulin Ratio 0.9 (0.9-2) Specimen Hemolysis POC Stool Occult Blood Positive A (Negative) Stl C. diff Tox B Gene Negative Cdiff Gene (Neg) COVID-19 Eval Order SARS-CoV-2 (PCR) (Negative) Blood Type Antibody Screen 09/03/20 09/03/20 09/03/20 Range/Units 17:04 19:15 19:15 WBC (4.8-10.8) K/uL RBC (4.2-5.4) M/uL Hgb (12.0-16.0) g/dL Hct (37-47) % MCV (80-100) fL MCH (25-34) pg MCHC (32-36) g/dL RDW Std Deviation (36.4-46.3) fL RDW Coeff of Taya (11.5-14.5) % Plt Count (130-400) K/uL MPV (7.4-10.4) fL Immature Gran % (Auto) % Neut % (Auto) % Lymph % (Auto) % [place] % (Auto) % Eos % (Auto) % Baso % (Auto) % Neut # (Auto) (1.4-6.5) K/uL Lymph # (Auto) (1.2-3.4) K/uL [place] # (Auto) (0.11-0.59) K/uL Eos # (Auto) (0-0.5) K/uL Baso # (Auto) (0-0.2) K/uL Immature Gran # (Auto) (0.00-0.02) K/uL PT (9.0-12.0) Seconds INR (0.9-1.1) APTT (21.0-31.0) Seconds PTT Ratio Sodium (136-145) mmol/L Potassium (3.5-5.1) mmol/L Chloride (98-107) mmol/L Carbon Dioxide (21-32) mmol/L Anion Gap (3-11) BUN (7-18) mg/dl Creatinine (0.6-1.2) mg/dl Est Cr Clr Drug Dosing ml/min Est GFR ( Amer) ml/min Est GFR (Non-Af Amer) ml/min BUN/Creatinine Ratio (10-20) Glucose (70-99) mg/dl Calcium (8.5-10.1) mg/dl Magnesium (1.8-2.4) mg/dl Total Bilirubin (0.2-1) mg/dl AST (15-37) U/L ALT (12-78) U/L Alkaline Phosphatase (45-117) U/L Total Protein (6.4-8.2) gm/dl Albumin (3.4-5.0) gm/dl Globulin (2.5-4.0) gm/dl Albumin/Globulin Ratio (0.9-2) Specimen Hemolysis POC Stool Occult Blood (Negative) Stl C. diff Tox B Gene (Neg) COVID-19 Eval Order Covid19 at [facility] SARS-CoV-2 (PCR) NEGATIVE (Negative) Blood Type A Positive Antibody Screen NEGATIVE Imaging Data Radiologist's Impression: Abdomen/Pelvis CT 09/03/20 15:[address] WITH IV CONTRAST CT DOSE: 4370.71 mGy.cm HISTORY: GI bleed. Gastric sleeve TECHNIQUE: Multiaxial CT images of the abdomen and pelvis were performed following the use of intravenous contrast. A dose lowering technique was utilized adhering to the principles of ALARA. COMPARISON STUDY: None. FINDINGS: There is artifact secondary to the patient's large body habitus abutting the gantry. The lung bases are clear. No pneumoperitoneum. No pneumatosis. No fractures within the visualized osseous structures. There is a 3.9 x 1.6 cm hypodense focus along the inferior aspect of the right hepatic lobe best seen on image 231. This could represent a splenic lesion or subcapsular fluid/old hematoma. The gallbladder, spleen, adrenal glands, and pancreas are unremarkable. The kidneys enhance normally. No hydronephrosis. No retroperitoneal lymphadenopathy. Normal caliber abdominal aorta. Small hiatus hernia. Postoperative changes consistent with a prior gastric sleeve procedure. There is an elongated hypodense structure abutting the anterior/inferior aspect of the gastric antrum near the suture line. This is best seen on image 103 and measures 4.6 x 1.7. There is minimal inflammatory changes at this location. No extraluminal gas to suggest an anastomotic leak. No dilated loops of bowel to suggest an obstruction. The bladder, uterus, bilateral adnexa are within normal limits. Colonic diverticulosis. No evidence for acute diverticulitis. No bowel w all thickening. Focal areas of soft tissue density within the subcutaneous fat of the anterior abdominal wall likely represent laparoscopic port sites. IMPRESSION: 1. Status post gastric sleeve procedure. 2. There is an elongated hypodense structure abutting the anterior/inferior aspect of the gastric antrum near the suture line which measures 4.6 x 1.7. There is minimal inflammatory changes at this location. This is nonspecific but favors postoperative change. No extraluminal gas to suggest an anastomotic leak. Follow-up abdomen and pelvis CT in one month should be considered to ensure r esolution/stability of this finding. 3. There is a 3.9 x 1.6 cm hypodense focus along the inferior aspect of the right hepatic lobe best. This could represent a hepatic lesion or subcapsular fluid/old hematoma. This also bears watching on follow-up examinations. ACT 112: Negative or not required by law. Electronically signed by: Lalo Malloy M.D. 09/03/2020 6:[address] 09/03/20 20:[address] DOSE: 773.57 mGy.cm HISTORY: L facial asymmetry TECHNIQUE: Multiaxial CT images of the head were performed without the use of intravenous contrast. Automated exposure control was utilized for this study. A dose lowering technique was utilized adhering to the principles of ALARA. Comparison: None. Findings: The paranasal sinuses and mastoid air cells are clear. The calvarium and skull base are intact. The ventricles and sulci are within normal limits. There is no mass, hematoma, midline shift, or acute infarct. Small amount of residual contrast within the brain from the recent abdomen and pelvis CT. Impression: No acute intracranial abnormality. ACT 112: Negative or not required by law. Electronically signed by: Lalo Malloy M.D. 09/03/2020 9:25 PM ECG Data Attestation: I personally reviewed and interpreted this ECG as follows: Indication: + other (GI bleed) Rate (beats per minute): 75 Rhythm: + normal sinus ECG Intervals/blocks: + Normal QT-c ECG Streeter: + Normal ECG ST segments: + Normal ST segments ECG Findings: no PACs and no PVCs Blood Pressure Blood Pressure Findings: Elevated blood pressure Blood Pressure Disposition: further management by hospitalist CHANDRA Hameed This patient was evaluated and appeared to be in no significant distress. IV access was obtained and laboratory work was drawn. An order for cardiac monitoring was placed and the patient is noted to be in a normal sinus rhythm at 81 bpm. IV hydration was initiated. Patient was placed on a Protonix IV bolus with drip. Stool on rectal exam is guaiac positive. Patient did have a small melanotic stool while in the emergency department. Given the patient's recent surgery, CT imaging of the abdomen pelvis was performed and postsurgical changes are noted but no appreciable hematoma or active contrast extravasation. Patient's hemoglobin is 13.6. Patient and her were informed of the findings and plan for admission. Gastroenterology, Dr. Garcia was notified of the patient. Patient will be evaluated for further management. She is aware of the plan and agrees. Impression & Plan Upper gastrointestinal hemorrhage, S/P gastric surgery, Morbid obesity with BMI of 60.0-69.9, adult Discharge Plan Visit Data Chief Complaint: GI Assessment Stated Complaint: LOWER GI BLOOD ED Provider: Corinna Padilla Discharge Problem: Upper gastrointestinal hemorrhage, S/P gastric surgery, Morbid obesity with BMI of 60.0-69.9, adult Patient Disposition: Admitted As Inpatient Discharge Instructions Interventions: ED Discharge Assessment Last Done: 09/03/20 21:52
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
--- NOTE | 2020-09-04 11:26 | Gastrointestinal Consultation ---
Date of Consultation September 04, 2020 Assessment & Plan (1) GI bleed: appears to have resolved on its own, mild to begin with. Likely hemorrhoids or diverticular, less likely ulcer. Recs: advance diet as tolerated now if recurrent bleeding today, then would keep NPO post midnight for EGD tomorrow if no further bleeding then can discharge home today on protonix 40 mg BID and follow up with [facility] as an outpatient continue protonix Thank you for allowing me to participate in the care of this patient History of Present Illness Attending Physician: Itzel George MD 35 yo female here with abd pains and hematochezia. She notes this has been going on for last week or so. Underwent slleve gastrectomy in June 2020 for obesity, also with HTN, diverticulosis. Hgb has been normal this admission, BUN normal, VSS. Currently without any pains or bleeding. On protonix drip. CT A/P with contrast unremarkable for any bleeding sources. EGD 09/[address] Howard was normal. labs reviewed, VSS. Allergies Allergy/AdvReac Type Severity Reaction Status Date / Time cephalexin [From Keflex] Allergy Mild vomiting, Verified 09/03/20 16:38 diarrhea Home Medications Medication Instructions Recorded Confirmed Type aripiprazole 10 mg tablet 10 mg PO QAM 05/27/19 09/03/20 History bupropion HCl 150 mg tablet,12 hr 150 mg PO BID 05/27/19 09/03/20 History sustained-release fluoxetine 20 mg capsule 20 mg PO QAM 05/27/19 09/03/20 History fluoxetine 40 mg capsule 40 mg PO QAM 05/27/19 09/03/20 History levothyroxine 137 mcg capsule 137 mcg PO QAM 05/27/19 09/03/20 History omeprazole 40 mg capsule,delayed 40 mg PO QAM 05/27/19 09/03/20 History release topiramate 100 mg tablet 100 mg PO HS 05/27/19 09/03/20 History Metamucil 1 tsp PO QAM PRN 10/20/19 09/03/20 History clonidine HCl [Catapres] 0.2 mg PO HS 03/22/20 09/03/20 History norethindrone acetate 10 mg PO DAILY 03/22/20 09/03/20 History calcium citrate [Citracal] 200 mg PO DAILY 09/03/20 09/03/20 History docusate sodium [Colace] 400 mg PO DAILY 09/03/20 09/03/20 History pediatric multivitamin 1 tab PO DAILY 09/03/20 09/03/20 History [Flintstones Multivitamin] Patient History Medical History Anemia Anxiety Bipolar disorder Degenerative disc disease Depression Diverticular disease Hypothyroidism Morbid obesity with BMI of 70 and over, adult Obesity Osteoarthritis Post traumatic stress disorder Sleep apnea cpap, does not use as ordered Spinal stenosis Surgical History History of colonoscopy History of esophagogastroduodenoscopy (EGD) History of myringotomy History of tonsillectomy and adenoids History of wisdom tooth extraction Family History Mother Diabetes Dyslipidemia Heart disease Thyroid disease Father Dyslipidemia Heart disease Colorectal cancer Hypertension Family hx colonic polyps Aunt Osteoarthritis Cancer uterine Grandmother (Paternal) Ovarian cancer Breast cancer Grandmother (Maternal) Cancer cervical Other No family history of adverse response to anesthesia Denies family history of Prostate cancer Social History Smoking Status: Former smoker Cigarettes Per Day: 2 a day; Smoking End Date: 2019; Second Hand Exposure: No; Do You Dip or Chew Tobacco: No; Tobacco Cessation Education Requested by Patient: No Hx Alcohol Use: No Hx Substance Use: No Preferred Language: French Communication Ability: Effective Assembler Type Bar And Segment Required: No Beliefs That Will Affect Care: None Current Living Situation: Spouse and Family Current Living Situation Comment: Lives with and stepson current occupational status: employed Other Information That Helps Us Care for You: No Feels Safe at Home: Yes Safety Concerns: Feels Safe At This Time Assistive Devices: None Review of Systems Constitutional: no fever, no chills and no weight loss Eyes: as per Subjective / HPI Ear, Nose, Mouth, Throat: as per Subjective / HPI Respiratory: no dyspnea and no dyspnea on exertion Cardiovascular: no chest pain and no palpitations Gastrointestinal: as per Subjective / HPI Musculoskeletal: no joint pain and no swelling Integumentary: no rash and no lesions Neurologic: no numbness and no paresthesia Psychiatric: no depression and no anxiety Endocrine: no fatigue Hematologic / Lymphatic: no easy bleeding and no easy bruising Physical Exam Constitutional: WD/WN, vitals as above Eyes: EOM intact bilaterally Neck: normal visual inspection Respiratory: normal respiratory effort, lungs clear to auscultation Cardiovascular: RRR, no murmur, no edema Gastrointestinal (Abdomen): Inspection/Auscultation: abdomen normal to inspection; abdomen not distended Percussion/Palpation: abdomen soft; abdomen nontender and no hepatosplenomegaly Musculoskeletal: Extremities: no cyanosis Gait: normal gait Skin: no rashes, warm and dry Neurologic: moves all extremities Psychiatric: A+Ox3, euthymic affect Results & Data ([facility]) Vital Signs (Past 12 Hours) Vital Signs Temp Pulse Pulse Resp BP Pulse Ox 09/04/20 07:27 37.1 C 81 16 119/67 97 09/04/20 06:20 71 09/04/20 04:13 84 09/04/20 03:31 37.1 C 90 18 111/72 97 09/04/20 00:04 36.7 C 75 17 144/79 H 98 PG Care Time/CCT Total # of Minutes Spent Total Time Spent with Patient: Total time spent is greater than 50% in coordination of care (as documented) at patient's floor/unit and/or counseling patient: Coding Level of Care Code 49223 Office/OBS Consult Lvl 4 Diagnoses GI bleed K92.2
--- NOTE | 2020-09-04 15:12 | Magnetic Resonance Report ---
MRI OF THE BRAIN WITHOUT CONTRAST CLINICAL HISTORY: facial asymmetry COMPARISON STUDY: None. FINDINGS: Sagittal T1, axial diffusion, proton density and T2 weighted axial, coronal FLAIR, and axial T1-weigh niurka images were acquired. No intra or extra-axial mass lesions are visualized Axial diffusion-weighted images reveal no evidence of acute or subacute infarction. There is no evidence of ventricular dilatation. Proton density T2-weighted and FLAIR images reveal single small area of slightly increased T2 FLAIR s ignal within left occipital lobe which shows no evidence of restricted diffusion and not visualized o n other modalities. There are no abnormal flow voids. Evaluation is slightly limited due to motion artifact. IMPRESSION: No acute intracranial hemorrhage, no midline shift or space occupying lesions. No evidence of restricted diffusion to suggest acute ischemia/infarct. Questionable small focal area of slightly increase in T2 FLAIR signal within left occipital lobe, pro bably nonspecific and might represent small region of gliosis versus other etiology. ACT 112: Negative or not required by law. The above report was generated using voice recognition software. It may contain grammatical, syntax o r spelling errors. Electronically signed by: Allyssa Tarango DO 09/04/2020 3:11 PM
--- NOTE | 2020-09-04 15:20 | Magnetic Resonance Report ---
MR ANGIOGRAPHY OF THE [place] NO CONTRAST CLINICAL HISTORY: facial asymmetry COMPARISON STUDY: None. A 3-D [id number] MR angiographic sequence of the [place] was performed. Both the source and projection images were reviewed. There is no evidence of major intracranial branch occlusion. There is no evidence of intracranial sherry nosis. There are no lesions suspicious for aneurysm. Hypoplastic bilateral posterior communicating arteries are seen likely representing developmental maite iant. IMPRESSION : No evidence of occlusion or significant stenosis as detailed above. ACT 112: Negative or not required by law. The above report was generated using voice recognition software. It may contain grammatical, syntax o r spelling errors. Electronically signed by: Allyssa Tarango DO 09/04/2020 3:19 PM
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
== END 2020-09-04 16:15 | disposition home or self-care (01) ==
LOC: 2W 14:11 → ED 14:11 → 2W 21:52

== ENCOUNTER 2024-06-30 05:57 | Observation (INO) ==
--- NOTE | 2024-06-02 11:14 | PAT Medication Instructions ---
Medication Instructions Date of Service June 02, 2024 Home Medications levothyroxine 137 mcg capsule (Tirosint) 137 mcg PO QAM calcium citrate 200 mg PO QAM cyanocobalamin (vitamin B-12) 1,000 mcg/mL injection kit 1,000 mcg subcut Q3M omeprazole 40 mg capsule,delayed release 40 mg PO QAM ferrous sulfate 325 mg (65 mg iron) tablet (iron) 325 mg PO QAM cholecalciferol (vitamin D3) 50 mcg (2,000 unit) capsule 50 mcg PO DAILY aripiprazole 400 mg suspension, extended rel.intramuscular syringe (AbiliInaura Maintena) 400 mg IM MONTHLY cetirizine 10 mg tablet (Zyrtec) 10 mg PO DAILY PRN Congestion iuljyoif-uah-rsvr-FA-Ca carb-vit K 18 mg iron-400 mcg-500 mg tablet (Women's One Daily) 1 tab PO DAILY propranolol 10 mg tablet 10 mg PO BID PRN Anxiety Medical Marijuana 1 dose PO DAILY PRN Sleep clomipramine 25 mg capsule 100 mg PO HS lamotrigine 100 mg tablet 100 mg PO HS pregabalin 50 mg capsule (Lyrica) 50 mg PO HS Continue as directed aripiprazole 400 mg suspension, extended rel.intramuscular syringe (AbiliInaura Maintena) 400 mg IM MONTHLY DO NOT take the morning of surgery calcium citrate 200 mg PO QAM cyanocobalamin (vitamin B-12) 1,000 mcg/mL injection kit 1,000 mcg subcut Q3M ferrous sulfate 325 mg (65 mg iron) tablet (iron) 325 mg PO QAM cholecalciferol (vitamin D3) 50 mcg (2,000 unit) capsule 50 mcg PO DAILY cetirizine 10 mg tablet (Zyrtec) 10 mg PO DAILY PRN Congestion jjzxwsmg-neg-buvd-FA-Ca carb-vit K 18 mg iron-400 mcg-500 mg tablet (Women's One Daily) 1 tab PO DAILY Medical Marijuana 1 dose PO DAILY PRN Sleep Take morning of surgery With a small sip of water, OTHERWISE NOTHING TO EAT OR DRINK AFTER MIDNIGHT: levothyroxine 137 mcg capsule (Tirosint) 137 mcg PO QAM omeprazole 40 mg capsule,delayed release 40 mg PO QAM propranolol 10 mg tablet 10 mg PO BID PRN Anxiety (if needed) Take evening before surgery cetirizine 10 mg tablet (Zyrtec) 10 mg PO DAILY PRN Congestion (if needed) propranolol 10 mg tablet 10 mg PO BID PRN Anxiety (if needed) Medical Marijuana 1 dose PO DAILY PRN Sleep (if needed) clomipramine 25 mg capsule 100 mg PO HS lamotrigine 100 mg tablet 100 mg PO HS pregabalin 50 mg capsule (Lyrica) 50 mg PO HS Other Notes If you have any questions please call us at [phone] or [phone] or [phone] or [phone]
--- NOTE | 2024-06-10 12:11 | Anesthesiology Consultation ---
Date of Service June 10, 2024 Assessment & Plan (1) Encounter for pre-operative examination: Chart Review Chart Review: Acceptable Risk for Surgery and Patient seen in Pre Admission Testing Per PAT appt on 06/10/24, no recent illness/disease exposures, illness related symptoms, or recent illness/disease positive tests. Will leave to surgeon's discretion if preop Covid testing needed Teaching & Discussion Pre-Anesthesia Teaching/Discussion Notes: Instructed NPO after midnight before surgery,except medications with 15 cc of water. Medication instructions provided according to the PAT guidelines. History Surgery Operation Date: 06/30/24 07:15 Proposed Procedures p C4-5, C5-6Cervical Artificial Disc Arthroplasty Spinal Cord Monitoring - Jeffery Lizarraga MD Height/Weight Height: 5 ft 5 in Weight: 139.2 kg Allergies Allergy/AdvReac Type Severity Reaction Status Date / Time cephalexin [From Keflex] AdvReac Intermediate vomiting, Verified 06/10/24 10:05 diarrhea Medications Home Medications Medication Instructions Recorded Confirmed Last Taken levothyroxine 137 mcg capsule 137 mcg PO QAM 05/27/19 06/10/24 01/31/24 (Tirosint) calcium citrate 200 mg PO QAM 09/03/20 06/10/24 01/31/24 cyanocobalamin (vitamin B-12) 1,000 mcg subcut Q3M 12/31/20 06/10/24 12/31/23 1,000 mcg/mL injection kit omeprazole 40 mg capsule,delayed 40 mg PO QAM 05/10/21 06/10/24 01/31/24 release ferrous sulfate 325 mg (65 mg 325 mg PO QAM 08/22/21 06/10/24 01/31/24 iron) tablet (iron) cholecalciferol (vitamin D3) 50 50 mcg PO DAILY 04/11/22 06/10/24 01/31/24 mcg (2,000 unit) capsule aripiprazole 400 mg suspension, 400 mg IM MONTHLY 11/05/23 06/10/24 01/31/24 extended rel.intramuscular syringe (Connor Vega) cetirizine 10 mg tablet (Zyrtec) 10 mg PO DAILY PRN Congestion 11/05/23 06/10/24 01/31/24 lvosxjem-fjf-nwda-FA-Ca carb-vit K 1 tab PO DAILY 11/05/23 06/10/24 01/31/24 18 mg iron-400 mcg-500 mg tablet (Women's One Daily) propranolol 10 mg tablet 10 mg PO BID PRN Anxiety 11/05/23 06/10/24 Unknown Medical Marijuana 1 dose PO DAILY PRN Sleep 05/29/24 06/10/24 Unknown clomipramine 25 mg capsule 100 mg PO HS 05/29/24 06/10/24 Unknown lamotrigine 100 mg tablet 100 mg PO HS 05/29/24 06/10/24 Unknown pregabalin 50 mg capsule (Lyrica) 50 mg PO HS 05/29/24 06/10/24 Unknown Past Medical History Medical History Anemia hx of iron infusion >1 year ago takes PO iron daily Anxiety Attention deficit disorder (ADD) Bipolar disorder Cervical spinal stenosis Degenerative disc disease Depression Diverticular disease History of COVID-19 Mar 2024 > resolved History of GI bleed 2020 - no current issues Hypothyroidism Neuropathy hands and feet Osteoarthritis Post traumatic stress disorder Prediabetes diet control Scoliosis Sleep apnea no device Exercise / Class Metabolic Activity III < 4 Walking/Shop/Light housework (one flight of stairs- no chest pain, mild SOB (goes slow)) Past Family History Family History Mother Diabetes Dyslipidemia Heart disease Thyroid disease Father Dyslipidemia Heart disease Colorectal cancer Hypertension Family hx colonic polyps Aunt Osteoarthritis Cancer uterine Grandmother (Paternal) Ovarian cancer Breast cancer Grandmother (Maternal) Cancer cervical Other No family history of adverse response to anesthesia Denies family history of Prostate cancer Past Surgical History Surgical History History of cholecystectomy History of colonoscopy History of esophagogastroduodenoscopy (EGD) History of hysterectomy History of myringotomy History of tonsillectomy and adenoids History of wisdom tooth extraction S/P epidural steroid injection S/P gastric surgery sleeve Past Anesthesia History No Hx of Anesthesia Complications and No Family Hx of Anesthesia Complications History of PONV No Hx of Motion Sickness and History of PONV (remote hx of PONV after gastric sleeve (occurred after oxycodone was given- unsure if due to anesthesia or pain meds)) Social History Smoking Status: Current every day smoker tobacco type: cigarettes Smoking cigarettes per day: 1/2 ppd > advised npo Do You Dip or Chew Tobacco: Yes (1 chew/month- advised npo) Hx Alcohol Use: Yes Alcohol type: beer and hard liquor alcohol intake frequency: a few times a week Hx Substance Use: Yes substance use type: marijuana Substance Use Type Other:: medical card use few times per week Review of Systems Patient denies chest pain, shortness of breath, dyspnea on exertion, reflux, cough, wheezing, palpitations. No hx of seizures, stroke, [place]. No hx of blood clots or blood transfusions Physical Exam Vital Signs VITALS BP 103/72 (chronic/baseline for patient; occ lightheadedness with standing too quickly (chronic)- no falls or dizziness otherwise; no issues with slow transitions) P 84 TEMP 97.6 SP02 96% RESP 16 Constitutional no acute distress ENMT Mouth: no TMJ clicking Thyromental Distance: > or= 3.5 Finger Breadths (3.5) Mallampati Class: II Neck + limited neck extension Respiratory normal respiratory effort; no respiratory distress Auscultation: lungs clear to auscultation bilaterally; no wheezes Cardiovascular Rate/Rhythm: regular rate and regular rhythm Heart Sounds: no murmur Vessels: no carotid bruit Musculoskeletal Spine: + pain with cervical ROM Extremities: extremities normal to inspection Psychiatric Orientation: alert Lab Results Anesthesia Preop Results Results Anesthesia Widget: WBC 6.05 K/ul (4.8-10.8) 06/10/24 Hgb 13.2 g/dl (12.0-16.0) 06/10/24 Hct 39.6 % (37.0-47.0) 06/10/24 Plt 246 K/uL (130-400) 06/10/24 Na 136 mmol/L (136-145) 06/10/24 K 4.6 mmol/L (3.5-5.1) 06/10/24 Cl 105 mmol/L (98-107) 06/10/24 CO2 27 mmol/L (21-32) 06/10/24 BUN 7 mg/dl (6-23) 06/10/24 Creat 0.59 mg/dl (0.6-1.2) L 06/10/24 Fasting Glucose 141 mg/dl (70-99) H 06/10/24 PT 10.2 Seconds (9.0-12.0) 06/10/24 PTT 27 Seconds (21-31) 06/10/24 INR 0.9 (0.9-1.1) 06/10/24 HA1c 5.8 % (4.5-5.6) H 06/10/24 Blood Type A Positive 06/10/24 Antibody Screen NEGATIVE 06/10/24 Testing Electrocardiogram Date: 06/10/24 Findings: + NSR @ (78bpm) Normal EKG per cardio Chest X-Ray Date: 02/01/24 Findings: + NAD Mildly prominent left lower lung zone broncho vascular markings. No significant interval changes. Stress Test Date: 04/11/20 Type: DSE Negative DSE and EKG for myocardial ischemia at 89% MPHR. No Dobutamine induced chest pain Baseline ECHO notes normal LV function
[2024-06-30] MEDS: LR 15ML/HR IV SCH (06:15)
[2024-06-30] MEDS: GABAPENTIN 900 MG DOSE PO SCH (06:16)
[2024-06-30] MEDS: ACETAMINOPHEN 500 MG TAB PO SCH (06:16)
[2024-06-30] MEDS: LR 60ML/HR IV SCH (06:18)
[2024-06-30] MEDS ORDERED: SUCCINYLCHOLINE CHLORIDE 20 MG/ML 10 ML VIAL IV ONE (06:50)
[2024-06-30] MEDS ORDERED: PROPOFOL IV EMULSION 10 MG/ML 20 ML VIAL IV ONE (06:50)
[2024-06-30] MEDS ORDERED: ROCURONIUM BROMIDE 10 MG/ML 5 ML VIAL IV ONE (06:50)
[2024-06-30] MEDS ORDERED: ONDANSETRON INJ 2 MG/ML 2 ML VIAL ONE (06:50)
[2024-06-30] MEDS ORDERED: DEXAMETHASONE SOD INJ 4 MG/ML VIAL ONE (06:50)
[2024-06-30] MEDS ORDERED: LIDOCAINE 2% 2 ML VIAL/AMP(20MG/ML) INFIL ONE (06:50)
[2024-06-30] MEDS ORDERED: PHENYLEPHRINE HCL 10 MG/ML VIAL ONE (07:01)
[2024-06-30] MEDS ORDERED: HYDROmorphone INJ 1 MG/ML SYRINGE IV PRN (07:05)
[2024-06-30] MEDS ORDERED: ATROPINE SULFATE 0.1 MG/ML 10ML SYR IV PRN (07:05)
[2024-06-30] MEDS ORDERED: HYDROmorphone INJ 2 MG/ML SYR/VIAL ONE (07:05)
[2024-06-30] MEDS ORDERED: MIDAZOLAM HCL 1 MG/ML 2ML VIAL ONE (07:05)
[2024-06-30] MEDS ORDERED: fentaNYL citrate PF 100 MCG/2 ML VIAL IV PRN (07:05)
[2024-06-30] MEDS ORDERED: ONDANSETRON INJ 2 MG/ML 2 ML VIAL IV PRN ×2 (07:05→12:44)
[2024-06-30] MEDS ORDERED: fentaNYL citrate PF 100 MCG/2 ML VIAL ONE ×2 (07:05→08:34)
[2024-06-30] MEDS ORDERED: ePHEDrine sulfate 50 MG/ML AMP IV PRN (07:05)
[2024-06-30] MEDS ORDERED: HYDROmorphone INJ 2 MG/ML SYR/VIAL IV PRN (07:05)
--- NOTE | 2024-06-30 07:10 | History & Physical Bridge Note ---
Date of Service June 30, 2024 History & Physical Bridge Note I have examined the patient, reviewed the History & Physical and in the interval since the performance of the History & Physical I have noted the following changes of clinical significance: no changes noted
[2024-06-30] MEDS: ceFAZolin 3000MG 3,000 MG/72.5 ML BAG IV SCH (07:37)
[2024-06-30] MEDS: VANCOMYCIN HCL 1000MG/20ML VIAL ONE (08:45)
[2024-06-30] MEDS ORDERED: ceFAZolin 330 MG/ML 1 GM VIAL ONE (11:33)
[2024-06-30] MEDS ORDERED: PROPOFOL IV EMULSION 10 MG/ML 100 ML VIAL IV ONE (11:44)
[2024-06-30] MEDS: GELATIN SPONGE 12-7MM ONE (12:02)
[2024-06-30] MEDS: THROMBIN 5000 UNITS KIT ONE (12:03)
[2024-06-30] MEDS ORDERED: SUGAMMADEX SODIUM 200 MG/2 ML VIAL IV ONE (12:19)
[2024-06-30] MEDS: FLOSEAL HEMOSTATIC MATRIX 10ML TOP ONE (12:20)
[2024-06-30] MEDS ORDERED: NALOXONE HCL 0.4 MG/1 ML VIAL/CARP IV PRN (12:44)
[2024-06-30] MEDS ORDERED: MAGNESIUM HYDROXIDE SUSP 30 ML UDC PO PRN (12:44)
[2024-06-30] MEDS ORDERED: ALUMINUM/MAGNESIUM SUSP 30 ML UDC PO PRN (12:44)
[2024-06-30] MEDS ORDERED: bisacodyL 10 MG SUPP PR PRN (12:44)
[2024-06-30] MEDS ORDERED: DO NOT ADMINISTER FLU VACCINE PRN (12:44)
[2024-06-30] MEDS ORDERED: ONDANSETRON 4 MG OD TAB PO PRN (12:44)
[2024-06-30] MEDS ORDERED: ACETAMINOPHEN 1,000 MG/100 ML VIAL IV PRN (12:44)
[2024-06-30] MEDS ORDERED: PROMETHAZINE 12.5 MG/50.5 ML BAG IV PRN (12:44)
[2024-06-30] MEDS ORDERED: LORazepam 0.5 MG TAB PO PRN (12:44)
[2024-06-30] MEDS ORDERED: DO NOT ADMINISTER PNEUMOCOCCAL VACCINE PRN (12:44)
[2024-06-30] MEDS ORDERED: SOD PHOSPHATE/SOD BIPHOSPHATE ENEMA 132 ML BTL PR PRN (12:44)
[2024-06-30] MEDS ORDERED: FAMOTIDINE 20 MG TAB PO PRN (12:44)
[2024-06-30] MEDS ORDERED: hydrOXYzine HCl 25 MG TAB PO PRN (12:44)
[2024-06-30] MEDS ORDERED: METOCLOPRAMIDE HCL INJ 5 MG/ML 2 ML VIAL IV PRN (12:44)
[2024-06-30] MEDS ORDERED: ACETAMINOPHEN 500 MG TAB PO PRN (12:44)
[2024-06-30] MEDS ORDERED: LORazepam 2 MG/1 ML VIAL IV PRN (12:44)
[2024-06-30] MEDS ORDERED: diphenhydrAMINE Capsule 25 MG CAP PO PRN (12:44)
--- NOTE | 2024-06-30 12:44 | Post Operative Brief Note ---
PG Immediate Post Op with CF Date of Surgery June 30, 2024 Pre & Post Diagnosis Operation Date: 06/30/24 07:15 Pre-Op Diagnosis: Cervical Spinal Stenosis, Cervical Radiculopathy Post-Op Diagnosis: Cervical Spinal Stenosis, Cervical Radiculopathy I identified the patient and participated in the time-out.: Yes Procedure Operation Date: 06/30/24 07:15 Actual Procedures p C4-5, C5-6 Cervical Artificial Disc Arthroplasty with Spinal Cord Monitoring(Not Applicable) - Jeffery Lizarraga MD Surgeon Jeffery Lizarraga MD Shelf Drier Operator Juan Yadav Estimated Blood Loss 20 Findings Consistent with Post-Op Diagnosis Specimens Specimen Description: No specimen per surgeon Drains Frazier Catheter (Inserted prior to procedure start by Charlene Foote RN; 10cc in balloon; Clear, yellow urine returned)
[2024-06-30] MEDS: ACETAMINOPHEN 1,000 MG/100 ML VIAL IV STA (13:14)
[2024-06-30 13:42] LABS: BUN Creatinine Ratio 21.2 (10-20); Calcium 8.6 mg/dl (8.6-10.3); Creatinine Clr Calc Pharmacy 162.4 ml/min; Potassium 4.3 mmol/L (3.5-5.1)
--- NOTE | 2024-06-30 13:52 | Anesthesiology Progress Note ---
Date of Service June 30, 2024 Anesthesia Post Procedure Vital Signs Vital Signs: Temp Pulse Pulse Resp BP Pulse Ox O2 Del Method 06/30/24 13:40 37.2 C 84 16 149/96 H 97 Nasal Cannula 06/30/24 13:30 83 14 144/96 H 97 Nasal Cannula 06/30/24 13:20 88 16 138/99 98 Oxymask 06/30/24 13:10 90 13 145/98 H 97 Oxymask 06/30/24 13:00 97 H 22 135/116 H 99 Oxymask 06/30/24 12:50 90 17 136/92 98 Oxymask 06/30/24 12:43 36.7 C 95 H 15 134/89 98 Oxymask 06/30/24 06:37 36.7 C 80 20 129/84 96 Room Air O2 Flow Rate 06/30/24 13:40 2 06/30/24 13:30 2 06/30/24 13:20 5 06/30/24 13:10 5 06/30/24 13:00 13 06/30/24 12:50 13 06/30/24 12:43 13 06/30/24 06:37 Pain Intensity Neck: Pain Intensity: 2 Transfer of Care Handoff Completed per policy Notes Mental Status: alert / awake / arousable Patient Amnestic to Procedure: Yes Nausea / Vomiting: adequately controlled Pain: adequately controlled Airway Patency, RR, SpO2: stable & adequate BP & HR: stable & adequate Hydration State: stable & adequate Anesthetic Complications: no major complications apparent and Pt Satisfied with anesthetic care
[2024-06-30] MEDS ORDERED: PROPRANOLOL HCL 10 MG TAB PO PRN (14:07)
[2024-06-30] MEDS ORDERED: CETIRIZINE HCL 10 MG TABLET PO PRN (14:07)
[2024-06-30] MEDS: oxyCODONE/ACETAMINOPHEN 5mg/325mg TAB PO PRN (14:19)
--- NOTE | 2024-06-30 15:03 | Fluoroscopy Report ---
FL cervical 2-3V CLINICAL HISTORY: C4-5, C5-6 CERVICAL ARTIFICIAL DISC ARTHROPLASTY COMPARISON STUDY: Cervical spine MRI May 05, 2024. Cervical spine CT June 22, 2024. Fluoroscopy time: 3 minutes and 53 seconds. Number of fluoroscopic images: 15 Ka,r: 222.63 mGy. FINDINGS: Fluoroscopy was provided during two level anterior discectomy and fusion. Image obtained at 8:18 a.m. demonstrates a surgical instrument directed toward the inferior endplate of C5. Exact loca lization of the 2 level discectomy is not possible on these fluoroscopic images. Hardware is intact. No unexpected radiopaque foreign bodies are identified. Endotracheal tube is partially imaged. IMPRESSION: Fluoroscopy provided during two level anterior discectomy and fusion. ACT 112: Negative or not required by law. Electronically signed by: Alonzo Zavala M.D. 06/30/2024 3:01 PM
--- NOTE | 2024-06-30 15:25 | Hospitalist Consultation ---
Date of Consultation June 30, 2024 Assessment & Plan (1) Cervical radiculopathy: (2) Cervical spinal stenosis: (3) Morbid obesity with BMI of 60.0-69.9, adult: - Pain management, bowel regimen and DVT ppx per the primary team - PT/OT consults, pt is planning on outpatient therapy - Follow am CBC to monitor for acute blood loss, last HGb of 13.2 on 06/10/24. CHELY drain in place. - Encourage diet and exercise for weight loss and mobility s/p surgical procedure - (4) Anxiety: (5) Depression: (6) Bipolar disorder: (7) Post traumatic stress disorder: (8) Attention deficit disorder (ADD): - Home medications include Abilify Maintena 400 mg monthly, lamictal 100 mg HS, medical marijuana( uses once every 60-90 days via vape), lyrica 50 mg HS, propranolol 10 mg BID. - Stable presently - encouraged tobacco cessation (9) Sleep apnea: - does not use CPAP (10) Prediabetes: - A1C 5.8 on 06/10/24 - Diet and exercise to be encouraged. (11) Hypothyroidism: - Cont levothyroxine 137 mcg daily DVT ppx: ambulatory, teds Lines: none Diet: regular CODE: FULL Dispo: From home, likely to remain in the hospital x 1-2 days A total of 35 minutes were spent with greater than 50% of that time face to face with the patient, personally reviewing all current laboratories, imaging studies, past medication reconciliation, outpatient chart review, and discussion with specialists to collaborate care for the patient with attending. Please see attending documentation for corrections and/or additions. Supervising Physician Co-Signing Physician Notes Patient seen and examined at bedside. Surrounded with and family. Patient comfortable at this time. On exam, appears comfortable, clean surgical dressing on anterior neck. Explained how to use incentive spirometer in room, discussed pain control and next steps. Dispo per ortho, appreciative of the opportunity to be involved in patients care. I have seen and discussed the case with the collaborating advanced practitioner. I agree with the above H&P. I have reviewed and confirmed the patients medical history, the findings on physical examination, and the patients diagnosis and treatment plan with Ivet Paul PA-C and agree with the information documented. I spent a total of 20 minutes coordinating, documenting, and providing care for this patient excluding time spent in the performance of separately billed services. All of the aforementioned completed outside of collaborating with the assigned advanced practitioner for a full treatment plan. I have reviewed the advanced practitioner's documentation, and I agree with, and take responsibility for the plan of care History of Present Illness Reason for Consultation: Post op med management Requesting Physician: Dr. Lizarraga Attending Physician: Jeffery Lizarraga MD History of Present Illness This is a 39 yo F with PMhx of cervical radiculopathy, anemia, anxiety, bipolar disorder, ADD, PTSD, Depression, hypothyroidismm, osteoarthritis, prediabetes, sleep apnea, scoliosis, who presents to the hospital for routine scheduled ADCF involving C4-C6 by Dr. Lizarraga on 06/30/24. she is asleep upon entry to the room however awakens easily. Patient reports that her pain is currently a 5/10. Received 10 mg oxycodone about 1 hour ago per nursing staff. She denies any peripheral numbness, tingling and can move all extremities without difficulty. Denies any acute headache. Last bowel movement was this morning. She has tolerated sips of water at bedside per nursing. Ordered to full liquid diet for dinner. Her , is present at bedside and supports the history. Social: Patient smokes half pack cigarettes daily, encourage cessation at bedside, encouraged nicotine patch for weaning off starting tomorrow if needed, uses medical marijuana and a vape once every 60 to 90 days. Denies alcohol use or illicit drug use. Allergies Allergy/AdvReac Type Severity Reaction Status Date / Time cephalexin [From Keflex] AdvReac Intermediate vomiting, Verified 06/30/24 06:06 diarrhea Home Medications Medication Instructions Recorded Confirmed Type levothyroxine 137 mcg capsule 137 mcg PO QAM 05/27/19 06/30/24 History (Tirosint) calcium citrate 200 mg PO QAM 09/03/20 06/30/24 History cyanocobalamin (vitamin B-12) 1,000 mcg subcut Q3M 12/31/20 06/30/24 History 1,000 mcg/mL injection kit omeprazole 40 mg capsule,delayed 40 mg PO QAM 05/10/21 06/30/24 History release ferrous sulfate 325 mg (65 mg 325 mg PO QAM 08/22/21 06/30/24 History iron) tablet (iron) cholecalciferol (vitamin D3) 50 50 mcg PO DAILY 04/11/22 06/30/24 History mcg (2,000 unit) capsule aripiprazole 400 mg suspension, 400 mg IM MONTHLY 11/05/23 06/30/24 History extended rel.intramuscular syringe (Connor Vega) cetirizine 10 mg tablet (Zyrtec) 10 mg PO DAILY PRN Congestion 11/05/23 06/30/24 History qzhmqkhx-jbt-kxnp-FA-Ca carb-vit K 1 tab PO DAILY 11/05/23 06/30/24 History 18 mg iron-400 mcg-500 mg tablet (Women's One Daily) propranolol 10 mg tablet 10 mg PO BID PRN Anxiety 11/05/23 06/30/24 History Medical Marijuana 1 dose PO DAILY PRN Sleep 05/29/24 06/30/24 History clomipramine 25 mg capsule 100 mg PO HS 05/29/24 06/30/24 History lamotrigine 100 mg tablet 125 mg PO HS 05/29/24 06/30/24 History pregabalin 50 mg capsule (Lyrica) 50 mg PO HS 05/29/24 06/30/24 History Patient History Medical History Anemia hx of iron infusion >1 year ago takes PO iron daily Anxiety Attention deficit disorder (ADD) Bipolar disorder Cervical spinal stenosis Degenerative disc disease Depression Diverticular disease History of COVID-19 Mar 2024 > resolved History of GI bleed 2020 - no current issues Hypothyroidism Neuropathy hands and feet Osteoarthritis Post traumatic stress disorder Prediabetes diet control Scoliosis Sleep apnea no device Surgical History History of cholecystectomy History of colonoscopy History of esophagogastroduodenoscopy (EGD) History of hysterectomy History of myringotomy History of tonsillectomy and adenoids History of wisdom tooth extraction S/P epidural steroid injection S/P gastric surgery sleeve Family History Mother Diabetes Dyslipidemia Heart disease Thyroid disease Father Dyslipidemia Heart disease Colorectal cancer Hypertension Family hx colonic polyps Aunt Osteoarthritis Cancer uterine Grandmother (Paternal) Ovarian cancer Breast cancer Grandmother (Maternal) Cancer cervical Other No family history of adverse response to anesthesia Denies family history of Prostate cancer Social History Smoking Status: Current every day smoker Tobacco Type: Cigarettes Cigarettes Per Day: 1/2 ppd > advised npo; Second Hand Exposure: No; Do You Dip or Chew Tobacco: Yes (1 chew/month- advised npo); Tobacco Cessation Education Requested by Patient: No Hx Alcohol Use: Yes Alcohol type: beer and hard liquor Hx Substance Use: Yes Substance Use Type Other:: medical card use few times per week Preferred Language: Tanzanian Communication Ability: Effective Visual Impairment: No Limitations Hearing Ability: Normal 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 Beliefs That Will Affect Care: None marital status: Current Living Situation: Spouse Current Living Situation Comment: Lives with and stepson current occupational status: employed current occupation: EMT Other Information That Helps Us Care for You: No Feels Safe at Home: Yes Safety Concerns: Feels Safe At This Time Assistive Devices: Glasses Review of Systems Review of Systems: Constitutional: No fever, sweats or chills Eyes: No diplopia, no worsening or blurred vision ENT: normal hearing, no trouble swallowing Neck: Soreness, pain rated 5/10, no edema, no numbness or tingling Respiratory: No cough, sputum, dyspnea at rest or on exertion Cardiovascular: No chest pain, tightness or palpitations Abdomen: No pain, nausea, vomiting, diarrhea or constipation Musculoskeletal: No joint pain, calf pain, swelling Neurologic: No weakness, numbness/tingling, or balance problems Psychiatric: No anxiety or depression Skin: No rash or itch Physical Exam Physical Exam: General: asleep initially but awakens easily, alert, no apparent distress, morbidly obese white female, BMI 50, warm skin to touch, flushed over cheeks Head: Normocephalic, atraumatic ENT: PERRL, EOMI, no pharyngeal exudate, mucous membranes moist Neck: anterior dressing c/d/i, no drain present Chest: Clear to auscultation, on room air, no adventitious breath sounds Cardiac: Regular rate and rhythm, no murmur, no JVD, normal peripheral pulses, good capillary refill Abdominal: NABS x 4 quadrants, soft, nondistended, nontender to palpation, no rebound or guarding Extremities: Normal inspection, no peripheral edema or erythema, calfs nontender to palpation Psych: Normal mood and affect Neuro: AAO x 3, strength intact bilaterally and rated 5/5, no motor deficits, speech is clear, no peripheral sensory deficits Results & Data Results & Data Vital Signs (Past 12 Hours) Vital Signs Temp Pulse Pulse Resp BP Pulse Ox O2 Del Method 06/30/24 14:38 75 16 149/98 H 96 Nasal Cannula 06/30/24 14:27 76 16 97 Nasal Cannula 06/30/24 14:14 37 C 86 16 141/100 H 97 Nasal Cannula 06/30/24 13:50 81 16 142/97 H 96 Nasal Cannula 06/30/24 13:40 37.2 C 84 16 149/96 H 97 Nasal Cannula 06/30/24 13:30 83 14 144/96 H 97 Nasal Cannula 06/30/24 13:20 88 16 138/99 98 Oxymask 06/30/24 13:10 90 13 145/98 H 97 Oxymask 06/30/24 13:00 97 H 22 135/116 H 99 Oxymask 06/30/24 12:50 90 17 136/92 98 Oxymask 06/30/24 12:43 36.7 C 95 H 15 134/89 98 Oxymask 06/30/24 06:37 36.7 C 80 20 129/84 96 Room Air O2 Flow Rate 06/30/24 14:38 2 06/30/24 14:27 2 06/30/24 14:14 2 06/30/24 13:50 2 06/30/24 13:40 2 06/30/24 13:30 2 06/30/24 13:20 5 06/30/24 13:10 5 06/30/24 13:00 13 06/30/24 12:50 13 06/30/24 12:43 13 06/30/24 06:37 Laboratory Results 06/30/24 12:58 Sodium 138 Potassium 4.3 Chloride 105 Carbon Dioxide 24 Anion Gap 9 BUN 14 Creatinine 0.66 Est Cr Clr Drug Dosing 162.4 eGFR 115.08 BUN/Creatinine Ratio 21.2 H Glucose 136 H Calcium 8.6
[2024-06-30] MEDS: ceFAZolin 2000MG 2,000 MG/15 ML SYR IV SCH (16:20)
[2024-06-30] MEDS: HYDROmorphone INJ 0.5 MG/0.5 ML SYR IV PRN (17:54)
[2024-06-30] MEDS: lamoTRIgine 100 MG TAB PO SCH (20:24)
[2024-06-30] MEDS: DOCUSATE SODIUM/SENNA 50/8.6MG TAB PO SCH (20:24)
[2024-06-30] MEDS: PREGABALIN 50 MG CAP PO SCH (20:24)
[2024-06-30] MEDS: RACEPINEPHRINE 2.25% NEBU SOLN 0.5 ML VIAL INH PRN (23:20)
[2024-06-30] MEDS: dexAMETHasone 8 MG in SYRINGE 0 ML IV PRN (23:30)
[2024-07-01] MEDS: POLYETHYLENE (MIRALAX) 17 GM PACK PO SCH (05:29)
[2024-07-01] MEDS: LEVOTHYROXINE SODIUM 137 MCG TABLET PO SCH (05:30)
[2024-07-01 07:54] VITALS: TEMP 97.5
--- NOTE | 2024-07-01 08:28 | Orthopedic Progress Note ---
Date of Service July 01, 2024 Subjective Pt seen and examined, notes improvement in both upper and lower extremities. No issues with swallowing. Motor improved in upper extremities. dressing with minimal drainage. Impression/plan: DC home today followup in 2 weeks. Review of Systems All systems reviewed & are unremarkable except as noted in HPI & below. Physical Exam . Results & Data Results & Data Laboratory Results . Diagnostic Findings . PG Care Time/CCT Total # of Minutes Spent Total Time Spent with Patient: Total time spent is greater than 50% in coordination of care (as documented) at patient's floor/unit and/or counseling patient: Coding Level of Care Code 97028 Post Operative Follow-Up
--- NOTE | 2024-07-01 08:30 | Discharge Summary ---
Date of Service July 01, 2024 Admission HPI (Per Admitting) Cervical Stenosis Principal Diagnosis Same as "Discharge Diagnosis" noted below under Discharge Instructions. Discharge Exam . Discharge Data Consultations 06/30/24 12:49 Consult Hospitalist Routine Procedures Performed Operation Date: 06/30/24 07:15 Actual Procedures p C4-5, C5-6 Cervical Artificial Disc Arthroplasty with Spinal Cord Monitoring(Not Applicable) - Jeffery Lizarraga MD Ordered Studies 06/30/24 [place] cervical 2-3V Routine Hospital Course (1) Myelomalacia of cervical cord: (2) Cervical radiculopathy: (3) Cervical spinal stenosis: (4) Hx of cervical spine surgery: PG Care Time/CCT Total # of Minutes Spent Total Time Spent with Patient: Total time spent is greater than 50% in coordination of care (as documented) at patient's floor/unit and/or counseling patient: Discharge Plan Discharge Items Patient Disposition: Home - Self-Care Reason For Visit: Cervical Spinal Stenosis, Cervical Radiculopathy Discharge Diagnosis: Same as admission Activity: As commented below Lifting: No more than 10 pounds Bathing: May shower/bathe in 3 days Exercise/Sports: Wait until after follow-up appointment Non-emergency contact: Surgeon Call non-emergency contact if: your pain is worsening Follow-up/Referrals: Kameron Desai MD [Primary Care Provider] - Diet: Regular Addtl Attending Provider Instructions: Follow up in 2 weeks. RX sent through ambulatory chart. Pending Studies at Discharge: No Stand-Alone Forms: [place] Social, Smoking Cessation Medications and DC Order Prescriptions: New oxycodone-acetaminophen [Percocet] 5-325 mg Tablet 1 tab PO Q6H PRN (Reason: pain) Qty: 16 0RF Continued cholecalciferol (vitamin D3) 50 mcg (2,000 unit) capsule 50 mcg PO DAILY lamotrigine 100 mg tablet 125 mg PO HS clomipramine 25 mg capsule 100 mg PO HS levothyroxine [Tirosint] 137 mcg capsule 137 mcg PO QAM cyanocobalamin (vitamin B-12) 1,000 mcg/mL Kit 1,000 mcg SUBCUT Q3M omeprazole 40 mg capsule,delayed release(DR/EC) 40 mg PO QAM ferrous sulfate [iron] 325 mg (65 mg iron) Tablet 325 mg PO QAM calcium citrate 200 mg (950 mg) Tablet 200 mg PO QAM cetirizine [Zyrtec] 10 mg Tablet 10 mg PO DAILY PRN (Reason: Congestion) propranolol 10 mg tablet 10 mg PO BID PRN (Reason: Anxiety) Women's One Daily 18 mg iron-400 mcg-500 mg Tablet 1 tab PO DAILY Abilify Maintena 400 mg suspension,extended rel syring 400 mg IM MONTHLY Patient Comments: usually beginning of month pregabalin [Lyrica] 50 mg capsule 50 mg PO HS Medical Marijuana 1 dose PO DAILY PRN (Reason: Sleep) No Action oxycodone-acetaminophen 5-325 mg tablet 1 tab PO Q6H Qty: 18 0RF cyclobenzaprine 10 mg tablet 10 mg PO Q8H Qty: 20 1RF methylprednisolone 4 mg tablets,dose pack See Rx Instructions .ROUTE .COMPLEX Qty: 21 0RF Rx Instructions: Please follow instructions per blister pack. Discharge Orders: Discharge Order (Routine); Ordered 07/01/24 Ordered By: Jeffery Lizarraga Admission Data Admit Date/Time: 06/30/24 12:44 Attending Provider: Jeffery Lizarraga Admit Provider: Jeffery Lizarraga Primary Care Provider: Kameron Desai Other Providers: Rigo Manzanares Other Interventions: Discharge Summary Assessment (RN) Last Done: 07/01/24 11:54
--- NOTE | 2024-07-01 10:33 | Hospitalist Progress Note ---
Date of Service July 01, 2024 Assessment & Plan (1) Cervical radiculopathy: (2) Cervical spinal stenosis: (3) Morbid obesity with BMI of 60.0-69.9, adult: (4) Anxiety: (5) Depression: (6) Bipolar disorder: (7) Post traumatic stress disorder: (8) Attention deficit disorder (ADD): Plan: - Home medications include Abilify Maintena 400 mg monthly, lamictal 100 mg HS, medical marijuana( uses once every 60-90 days via vape), lyrica 50 mg HS, propranolol 10 mg BID. - Stable presently - encouraged tobacco cessation (9) Sleep apnea: (10) Prediabetes: (11) Hypothyroidism: (12) Laryngeal spasm: Plan: Postoperative, resolved Plan Patient status post cervical spine surgical intervention. Overnight had very mild and transient episode of laryngeal spasm and stridor. This is most likely due to her being intubated with general anesthesia from her surgery. This is now resolved. Vital signs stable Laboratory studies stable Other medical issues and Mental health issues all stable. Okay for discharge from medical standpoint when ready for discharge per attending. Communicated with Dr. Lizarraga Thank you Admission and Anticipated Discharge Date Admission Date: June 30, 2024 Subjective Events of last evening noted, some mild laryngeal spasm. Resolved at this time. Feels well. Has been up and ambulating in the halls. Pain is controlled. Anticipating discharge today from her attending. Physical Exam Physical Exam: Constitutional: Alert, no acute distress HEENT: Mucous membranes moist. Surgical dressing anterior neck clean and dry, no laryngeal stridor auscultated Lungs: Clear to auscultation, decreased, no wheezes rales or rhonchi CV: S1-S2, regular Abdomen: Soft, nontender, nondistended Extremities: No significant edema Neuro: No focal deficits Psych: Cooperative, normal mood Results & Data Results & Data Vital Signs (Past 12 Hours) Vital Signs Temp Pulse Pulse Resp BP BP Pulse Ox 07/01/24 07:44 36.4 C L 77 17 122/80 96 07/01/24 07:40 74 18 97 07/01/24 06:09 36.5 C 69 16 129/82 95 07/01/24 03:53 36.6 C 69 16 119/74 94 07/01/24 03:00 84 18 96 07/01/24 02:03 36.6 C 69 16 134/83 93 07/01/24 00:03 36.6 C 74 18 125/77 94 06/30/24 23:22 96 H 18 98 06/30/24 23:21 96 H 19 98 O2 Del Method 07/01/24 07:44 Room Air 07/01/24 07:40 Room Air 07/01/24 06:09 Room Air 07/01/24 03:53 Room Air 07/01/24 03:00 Room Air 07/01/24 02:03 Room Air 07/01/24 00:03 Room Air 06/30/24 23:22 Room Air 06/30/24 23:21 Room Air Diagnostic Findings Reviewed imaging, laboratory and diagnostic studies. Pertinent findings as below. BMP stable Glucose 136
[2024-07-01 11:19] VITALS: BP 106/70
[2024-07-01 11:30] VITALS: RESP 18; O2SAT 95
--- NOTE | 2024-07-01 11:33 | Operative Report ---
[facility] Post Operative Report Pre & Post Diagnosis Operation Date: 06/30/24 07:15 Pre-Op Diagnosis: Cervical Spinal Stenosis, Cervical Radiculopathy Post-Op Diagnosis: Cervical Spinal Stenosis, Cervical Radiculopathy I identified the patient and participated in the time-out.: Yes Procedure Operation Date: 06/30/24 07:15 Actual Procedures p C4-5, C5-6 Cervical Artificial Disc Arthroplasty with Spinal Cord Monitoring(Not Applicable) - Jeffery Lizarraga MD Surgeon Jeffery Lizarraga MD [employer] Juan Yadav Estimated Blood Loss 20 Findings Consistent with Post-Op Diagnosis Specimens none Description of Procedure 1. C4-5 anterior cervical decompression, artificial disc arthroplasty, Mobi-C 15 x 15 x 5 mm. ([id number]) 2. C5-6 anterior cervical decompression, artificial disc arthroplasty, Mobi-C 15 x 17 x 5 mm. ([id number]) Patient was taken operating room and after adequate anesthesia was carefully positioned on the OSI flattop table. After securing the patient in routine fashion, her shoulders were taped down, additional measures were employed due to the patient's body habitus. A preprepped was performed of the cervical region, fluoroscopy was brought in I marked for the approximate location of the incision at C4-5 and C5-6 levels. Prep and drape was performed, I began the procedure with a transverse incision over the C5 vertebral body. I then advanced down to the anterior aspect of the cervical spine in routine fashion along the medial border of the sternocleidomastoid. Once locating the disc spaces, this was confirmed fluoroscopically with metallic marker, I then mobilized the soft tissues over the levels mentioned. Starting at the C4-5 level, I used fluoroscopy to advance distractor pins into C4 and C5, retractors were set. The microscope was brought in, I made an anterior annulotomy at C4-5 followed by a thorough discectomy with removal of disc material and cartilage from endplates. Posterior decompression was performed with utilization of a high-speed bur to thin the spondylosis followed by combination of curettes and Kerrison punches with decompression down to the dura out to the uncinates bilaterally. Trial was placed, AP and lateral fluoroscopy was used to assess the size of the implant which was selected and then inserted with proper position on AP and lateral views. The C4 distractor pin was removed Floseal and bone wax was applied. This pin was then placed at C6 to allow for the procedure to see C5-6 level. Retractors were reset, and in a similar fashion anterior annulotomy was p erformed along with a thorough discectomy at this level with removal of disc and cartilage. Decompression was performed down to the dura out to the uncinates bilaterally. I selected the size implant as noted, this was inserted with excellent position on AP and lateral views. Distractor pins were then removed, final images were obtained, combination of Floseal and bone wax was applied to pin site locations. Final examination revealed no issues, vancomycin powder was placed, the operative site was closed with 3-0 Vicryl sutures followed by benzoin and Steri-Strips. Patient tolerated procedure well, due to the patient's body habitus, the patient took an additional significant amount of time to complete. I attest to the content of the Intraoperative Record and any orders documented therein. Any exceptions are noted below.
[2024-07-01 11:56] VITALS: PULSE 69
== END 2024-07-01 13:34 | disposition home or self-care (01) ==
LOC: ASU 05:57 → 3E 05:57
DX: Z79.899 Other long term (current) drug therapy; G95.89 Other specified diseases of spinal cord; F17.210 Nicotine dependence, cigarettes, uncomplicated; K21.9 Gastro-esophageal reflux disease without esophagitis; Z79.890 Hormone replacement therapy; M54.12 Radiculopathy, cervical region; G47.33 Obstructive sleep apnea (adult) (pediatric); F41.9 Anxiety disorder, unspecified; Z88.1 Allergy status to other antibiotic agents